=== PATIENT | female | born 1940 | race Caucasian/White ===

== ENCOUNTER 2017-04-22 17:48 | Observation (INO) ==
[2017-04-22] MEDS ORDERED: 0.9 % Sodium Chloride 1,000 ML IVC ONE (18:01)
--- NOTE | 2017-04-22 18:01 | Emergency Department Note ---
Disposition Clinical Impression: Hypertensive emergency, Migraine, Neurological symptoms Disposition: Admitted As Inpatient Condition: Good General Adult HPI - General Chief complaint: ED Altered Mental Status Stated complaint: Headache, High BP, Confusion Time Seen by Provider: 04/22/17 17:52 Source: EMS Nursing Notes Reviewed: Yes Vital Signs Reviewed: Yes - History of Present Illness Pain Scale: 9 - Related Data Home Medications Medication Instructions Recorded Confirmed Atorvastatin Calcium [Lipitor] 20 mg PO HS 01/23/16 04/22/17 Cholecalciferol (D-3) [Vitamin D] 1,000 unit PO DAILY 01/23/16 04/22/17 Multivitamin [Multivitamins] 1 tab PO DAILY 01/23/16 04/22/17 Omeprazole [PriLOSEC] 20 mg PO DAILY 01/23/16 04/22/17 clonazePAM [Klonopin] 1 mg PO BID PRN 01/23/16 04/22/17 hydroCHLOROthiazide 25 mg PO DAILY 01/23/16 04/22/17 [Hydrochlorothiazide] metFORMIN [Glucophage] 500 mg PO BIDWM 01/23/16 04/22/17 Aspirin Enteric Coated [Aspirin EC] 81 mg PO DAILY 11/21/16 04/22/17 Cyanocobalamin (Vitamin B-12) 100 mcg PO DAILY 04/22/17 04/22/17 [Vitamin B-12] Erythromycin OPTH Oint 1 appl BOTH EYES HS 04/22/17 04/22/17 Levothyroxine [Synthroid] 100 mcg PO 0630 04/22/17 04/22/17 Allergies Allergy/AdvReac Type Severity Reaction Status Date / Time Iodinated Contrast- Oral and Allergy See Verified 11/21/16 10:27 IV Dye Comments ampicillin AdvReac Itching Verified 01/30/16 12:37 Cephalosporins AdvReac Rash Verified 01/30/16 12:37 metronidazole [From Flagyl] AdvReac Itching Verified 01/30/16 12:37 naproxen AdvReac Itching Verified 01/30/16 12:37 nitrofurantoin AdvReac "serum Verified 01/30/16 12:37 [From Macrodantin] sickness" penicillin V AdvReac Itching Verified 01/30/16 12:37 Past Medical History - Past Medical History Medical history: Reports: arthritis, diabetes, GERD, hypertension, migraine, thyroid disease Surgical history: Reports: hysterectomy, other Psychiatric history: Reports: no psych history 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 - Social History Smoking Status: Former smoker Smokeless Tobacco Status: No Alcohol use: Reports: none Drug use: Reports: none Physical Exam - General General appearance: alert, in no apparent distress Course Vital Signs Temperature 97.5 F L 04/22/17 17:50 Pulse Rate 70 04/22/17 17:50 Respiratory Rate 20 04/22/17 17:50 Blood Pressure 205/106 04/22/17 17:50 O2 Sat by Pulse Oximetry 96 04/22/17 17:50 Temperature 98.2 F 04/22/17 21:48 Pulse Rate 69 04/22/17 21:48 Respiratory Rate 16 04/22/17 21:48 Blood Pressure 196/93 04/22/17 21:48 O2 Sat by Pulse Oximetry 97 04/22/17 21:48 Oxygen Delivery Oxygen Delivery Room Air Medical Decision Making - MDM Narrative Medical decision making narrative: This documentation is done with the assistance of Dragon dictation. Despite efforts made to ensure accuracy, there may be inaccuracies in teleservices representative or spelling and typographical errors. I examined this patient and my medical decision-making was reviewed with the Resident Physician. I agree with the documented findings, disposition and treatment plan as described except to the extent set forth below. Patient was seen on arrival with EMS and Dr. Kolb, I agree with his evaluation and treatment plan, I supervised the care of the patient's stay, patient presents today with headache and hypertension. She has had a history of this in the past and was just seen in the emergency department. Had high blood pressures with the greater than 200 systolic when she was seen before CT of her head was negative. She says she is taking her blood pressure medicine but still appears high. She states that she said migraine headaches since she was a child and this is gotten worse. Medics state gave her a "nerve pill before she came in that made her little bit sleepy but still is high blood pressure and also hypertension and headache. When I review her last chart. We will try to make her more comfortable than determine if we need to do other studies on her. She is in agreement with this plan. Head CT 04/22/17 18:08 IMPRESSION: No acute intracranial abnormality. D/ / Roberth Echols MD / Roberth Echols MD Interpreting Provider: Roberth Echols MD 1940 hrs.: CTs back labs are back no big changes on labs. We will bring her into the hospital. For evaluation of this hypertensive with possible hypertensive emergency and TIA. They are in agreement with plan per - Lab Data Result diagrams: 04/22/17 18:17 04/22/17 18:17 Lab Results 04/22/17 04/22/17 04/22/17 Range/Units 18:17 18:17 18:17 WBC 7.8 (4.3-11.1) K/mcL RBC 4.64 (3.82-4.97) M/mcL Hgb 12.7 (11.5-15.4) g/dL Hct 37.6 (35.3-44.9) % MCV 81.0 L (83.0-100.0) fL MCH 27.4 L (28.0-33.3) pg MCHC 33.8 (31.6-35.5) g/dL RDW 14.3 (11.5-14.5) % Plt Count 240 (140-400) K/mcL MPV 9.8 (9.4-12.4) fL Immature Gran % 0.3 (0-4) % Seg Neutrophils % 53.1 % Lymphocytes % 31.6 % Monocytes % 12.0 % Eosinophils % 2.4 % Basophils % 0.6 % Neutrophils # 4.2 (1.6-8.9) K/mcL Lymphocytes # 2.5 (0.6-4.6) K/mcL Monocytes # 0.9 (0.0-1.3) K/mcL Eosinophils # 0.2 (0.0-0.6) K/mcL Basophils # 0.1 (0.0-0.2) K/mcL Sodium 135 L (136-145) mEq/L Potassium 3.6 (3.5-5.1) mEq/L Chloride 101 (98-107) mEq/L Carbon Dioxide 24 (23-29) mEq/L BUN 16 (8-23) mg/dL Creatinine 1.06 (0.60-1.20) mg/dL Est GFR ( Amer) > 60 (> 60) Est GFR (Non-Af Amer) 51 L (> 60) BUN/Creatinine Ratio 15 (6-26) Glucose 99 (70-105) mg/dL Calculated Osmolality 281 (280-300) Calcium 9.1 (8.6-10.3) mg/dL Troponin I < 0.03 (< 0.04) ng/mL TSH 0.784 (0.340-5.600) mcIU/mL Specimen Rejected 04/22/17 Range/Units 18:17 WBC (4.3-11.1) K/mcL RBC (3.82-4.97) M/mcL Hgb (11.5-15.4) g/dL Hct (35.3-44.9) % MCV (83.0-100.0) fL MCH (28.0-33.3) pg MCHC (31.6-35.5) g/dL RDW (11.5-14.5) % Plt Count (140-400) K/mcL MPV (9.4-12.4) fL Immature Gran % (0-4) % Seg Neutrophils % % Lymphocytes % % Monocytes % % Eosinophils % % Basophils % % Neutrophils # (1.6-8.9) K/mcL Lymphocytes # (0.6-4.6) K/mcL Monocytes # (0.0-1.3) K/mcL Eosinophils # (0.0-0.6) K/mcL Basophils # (0.0-0.2) K/mcL Sodium (136-145) mEq/L Potassium (3.5-5.1) mEq/L Chloride (98-107) mEq/L Carbon Dioxide (23-29) mEq/L BUN (8-23) mg/dL Creatinine (0.60-1.20) mg/dL Est GFR ( Amer) (> 60) Est GFR (Non-Af Amer) (> 60) BUN/Creatinine Ratio (6-26) Glucose (70-105) mg/dL Calculated Osmolality (280-300) Calcium (8.6-10.3) mg/dL Troponin I (< 0.04) ng/mL TSH (0.340-5.600) mcIU/mL Specimen Rejected TNP
[2017-04-22] MEDS ORDERED: *HR* Labetalol 100 MG/20 ML MDV IVP ONE (18:02)
[2017-04-22] MEDS ORDERED: Metoclopramide 10 MG/2 ML VIAL IVP ONE (18:09)
--- NOTE | 2017-04-22 18:15 | Emergency Department Note ---
Disposition Clinical Impression: Hypertensive emergency, Migraine, Neurological symptoms Disposition: Admitted As Inpatient Condition: Good Referrals: Johnathon Rosales Jr, MD [Primary Care Provider] - Forms: ED Satisfaction Letter General Adult HPI - General Chief complaint: ED Altered Mental Status Stated complaint: Headache, High BP, Confusion Time Seen by Provider: 04/22/17 17:52 Source: patient, EMS Mode of arrival: EMS Limitations: no limitations Nursing Notes Reviewed: Yes Vital Signs Reviewed: Yes - History of Present Illness HPI Narrative: 76 y/o female female w/ a PMH of HTN, DM, hypothyroidism. She presents with chief complaints of headache and HTN. She reports migraines since she was 7 years old. She does not take any migraine medications. Denies seeing a neurologist. Reports switching to a different BP medication a few weeks ago and since then has had worsening headaches. She has been getting headaches every few days. She has been seen in the ED and urgent care for HTN and migraines recently. She reports today at about noon she developed another headache and elevated BP. Her reported left sided facial droop, and stumbling down the fontaine, and some confusion. This has all resolved aside from the headache and HTN. She has some nausea but not vomiting. Radiation: non-radiation Pain Severity: severe Pain Scale: 9 Improves with: nothing Worsens with: nothing Associated symptoms: Reports: denies other symptoms Treatments Prior to Arrival: none - Related Data Home Medications Medication Instructions Recorded Confirmed Atorvastatin Calcium [Lipitor] 20 mg PO HS 01/23/16 01/30/16 Cholecalciferol (D-3) [Vitamin D] 1,000 unit PO DAILY 01/23/16 01/30/16 Levothyroxine [Synthroid] 50 mcg PO 0630 01/23/16 01/30/16 Losartan Potassium [Cozaar] 50 mg PO HS 01/23/16 01/30/16 Multivitamin [Multivitamins] 1 tab PO DAILY 01/23/16 01/30/16 Omeprazole [PriLOSEC] 20 mg PO DAILY 01/23/16 01/30/16 clonazePAM [Klonopin] 1 mg PO BID PRN 01/23/16 01/30/16 hydroCHLOROthiazide 25 mg PO DAILY 01/23/16 01/30/16 [Hydrochlorothiazide] metFORMIN [Glucophage] 500 mg PO BIDWM 01/23/16 01/30/16 Aspirin 09/17/17 Benadryl 11/21/16 11/21/16 Previous Rx's Medication Instructions Recorded Acetaminophen [Tylenol] 1,000 mg PO Q6HR PRN #0 tablet 01/26/16 Chava/Poly/HC *EAR* SUSP 4 drop RIGHT EAR QID 7 Days 11/21/16 [Cortisporin *EAR* SUSP] drops.susp Sulfamethoxazole/Trimeth DS 1 each PO BID #14 tablet 11/21/16 [Bactrim DS] Allergies Allergy/AdvReac Type Severity Reaction Status Date / Time Iodinated Contrast- Oral and Allergy See Verified 11/21/16 10:27 IV Dye Comments ampicillin AdvReac Itching Verified 01/30/16 12:37 Cephalosporins AdvReac Rash Verified 01/30/16 12:37 metronidazole [From Flagyl] AdvReac Itching Verified 01/30/16 12:37 naproxen AdvReac Itching Verified 01/30/16 12:37 nitrofurantoin AdvReac "serum Verified 01/30/16 12:37 [From Macrodantin] sickness" penicillin V AdvReac Itching Verified 01/30/16 12:37 All systems ED: reviewed and negative except as stated. 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 Absent: respiratory distress - Cardiovascular Cardiovascular exam: Present: regular rate, normal rhythm - Abdominal Exam Abdominal exam: Present: soft, Non-Tender - Extremities Exam Extremities exam: Present: normal inspection - Neurological Exam Neurological exam: Present: alert, oriented X3, CN II-XII intact, normal gait, reflexes normal. Absent: motor sensory deficit - Psychiatric Psychiatric exam: Present: normal affect, normal mood - Skin Skin exam: Present: warm, dry Course Course Narrative: BP reduced to 170 systolic after labetalol. HEadache improved after reglan. She is ambulatory in the ED. Will admit for HTN emergency (confusion according to the ). Accepted by hospitalist for admission due to concern for TIA symptoms. All neurologic symptoms are currently resolved. Vital Signs Temperature 97.5 F L 04/22/17 17:50 Pulse Rate 70 04/22/17 17:50 Respiratory Rate 20 04/22/17 17:50 Blood Pressure 205/106 04/22/17 17:50 O2 Sat by Pulse Oximetry 96 04/22/17 17:50 Temperature 97.5 F L 04/22/17 17:50 Pulse Rate 65 04/22/17 19:17 Respiratory Rate 16 04/22/17 19:17 Blood Pressure 203/91 04/22/17 19:17 O2 Sat by Pulse Oximetry 97 04/22/17 19:17 Oxygen Delivery Oxygen Delivery Room Air Medical Decision Making - Medical Records Medical records reviewed: Yes I reviewed the patient's medical records. - Lab Data Lab results reviewed: Yes I reviewed the patient's lab results. Result diagrams: 04/22/17 18:17 04/22/17 18:17 Lab Results 04/22/17 04/22/17 04/22/17 Range/Units 18:17 18:17 18:17 WBC 7.8 (4.3-11.1) K/mcL RBC 4.64 (3.82-4.97) M/mcL Hgb 12.7 (11.5-15.4) g/dL Hct 37.6 (35.3-44.9) % MCV 81.0 L (83.0-100.0) fL MCH 27.4 L (28.0-33.3) pg MCHC 33.8 (31.6-35.5) g/dL RDW 14.3 (11.5-14.5) % Plt Count 240 (140-400) K/mcL MPV 9.8 (9.4-12.4) fL Immature Gran % 0.3 (0-4) % Seg Neutrophils % 53.1 % Lymphocytes % 31.6 % Monocytes % 12.0 % Eosinophils % 2.4 % Basophils % 0.6 % Neutrophils # 4.2 (1.6-8.9) K/mcL Lymphocytes # 2.5 (0.6-4.6) K/mcL Monocytes # 0.9 (0.0-1.3) K/mcL Eosinophils # 0.2 (0.0-0.6) K/mcL Basophils # 0.1 (0.0-0.2) K/mcL Sodium 135 L (136-145) mEq/L Potassium 3.6 (3.5-5.1) mEq/L Chloride 101 (98-107) mEq/L Carbon Dioxide 24 (23-29) mEq/L BUN 16 (8-23) mg/dL Creatinine 1.06 (0.60-1.20) mg/dL Est GFR ( Amer) > 60 (> 60) Est GFR (Non-Af Amer) 51 L (> 60) BUN/Creatinine Ratio 15 (6-26) Glucose 99 (70-105) mg/dL Calculated Osmolality 281 (280-300) Calcium 9.1 (8.6-10.3) mg/dL Troponin I < 0.03 (< 0.04) ng/mL TSH 0.784 (0.340-5.600) mcIU/mL Specimen Rejected 04/22/17 Range/Units 18:17 WBC (4.3-11.1) K/mcL RBC (3.82-4.97) M/mcL Hgb (11.5-15.4) g/dL Hct (35.3-44.9) % MCV (83.0-100.0) fL MCH (28.0-33.3) pg MCHC (31.6-35.5) g/dL RDW (11.5-14.5) % Plt Count (140-400) K/mcL MPV (9.4-12.4) fL Immature Gran % (0-4) % Seg Neutrophils % % Lymphocytes % % Monocytes % % Eosinophils % % Basophils % % Neutrophils # (1.6-8.9) K/mcL Lymphocytes # (0.6-4.6) K/mcL Monocytes # (0.0-1.3) K/mcL Eosinophils # (0.0-0.6) K/mcL Basophils # (0.0-0.2) K/mcL Sodium (136-145) mEq/L Potassium (3.5-5.1) mEq/L Chloride (98-107) mEq/L Carbon Dioxide (23-29) mEq/L BUN (8-23) mg/dL Creatinine (0.60-1.20) mg/dL Est GFR ( Amer) (> 60) Est GFR (Non-Af Amer) (> 60) BUN/Creatinine Ratio (6-26) Glucose (70-105) mg/dL Calculated Osmolality (280-300) Calcium (8.6-10.3) mg/dL Troponin I (< 0.04) ng/mL TSH (0.340-5.600) mcIU/mL Specimen Rejected TNP - Radiology Data Radiology results reviewed: Yes I reviewed the patient's radiology results. - EKG Data EKG #1 EKG attestation: Yes I reviewed and interpreted this EKG. EKG shows normal: sinus rhythm Rate: normal Rhythm: NSR Interpretation: no acute changes
[2017-04-22 18:29] LABS: Basophils # 0.1 K/mcL (0.0-0.2); Basophils % 0.6 %; Eosinophils # 0.2 K/mcL (0.0-0.6); Eosinophils % 2.4 %; Hematocrit 37.6 % (35.3-44.9); Hemoglobin 12.7 g/dL (11.5-15.4); Immature Granulocytes % 0.3 % (0-4); Lymphocytes # 2.5 K/mcL (0.6-4.6); Lymphocytes % 31.6 %; Mean Corpuscular HGB Conc 33.8 g/dL (31.6-35.5); Mean Corpuscular Hemoglobin 27.4 pg (28.0-33.3); Mean Platelet Volume 9.8 fL (9.4-12.4); Monocytes # 0.9 K/mcL (0.0-1.3); Neutrophils # 4.2 K/mcL (1.6-8.9); Platelet Count 240 K/mcL (140-400); Red Blood Count 4.64 M/mcL (3.82-4.97); Red Cell Distribution Width 14.3 % (11.5-14.5); Segmented Neutrophils % 53.1 %
[2017-04-22 19:08] LABS: Thyroid Stimulating Hormone 0.784 mcIU/mL (0.340-5.600)
[2017-04-22 19:09] LABS: BUN/Creatinine Ratio 15 (6-26); Blood Urea Nitrogen 16 mg/dL (8-23); Calcium 9.1 mg/dL (8.6-10.3); Carbon Dioxide 24 mEq/L (23-29); Chloride 101 mEq/L (98-107); Glucose 99 mg/dL (70-105); Osmolality,Calculated 281 (280-300); Potassium 3.6 mEq/L (3.5-5.1); Sodium 135 mEq/L (136-145); eGFR For African Americans > 60 (> 60); eGFR For Non-African Americans 51 (> 60)
[2017-04-22] MEDS ORDERED: Naloxone 0.4 MG/ML INJ IVP PRN (22:02)
[2017-04-22] MEDS: *HR* HYDROcodone/Acet 5/325 mg TABLET PO PRN (23:00)
[2017-04-22] MEDS ORDERED: *HR* Dextrose 50 % in Water (Syg) 50 ML SYRINGE IVP PRN (23:26)
[2017-04-22] MEDS ORDERED: Dextrose Gel 15 GM/37.5 ML TUBE PO PRN ×2 (23:26)
[2017-04-22] MEDS ORDERED: D5% in Water 1,000 ML IVC PRN (23:26)
--- NOTE | 2017-04-22 23:32 | Internal Med History&Physical ---
Date of Encounter: 04/22/17 Time of Encounter: 21:00 Assessment and Plan (1) Hypertensive urgency Current visit: Yes Status: Acute Pt has poorly controlled HTN with BP over 200, no signs of significant end organ damage. Consider HTN urgency. - Closely monitor BP - Cont home med HCTZ - Add labetalol 200mg po BID - Hydralazine 10mg iv q6hr PRN for SBP > 180 - Avoid hypotension as pt has symptoms of TIA, keep relatively high BP ( permissive HTN) tonight. (2) TIA (transient ischemic attack) Current visit: Yes Status: Acute Pt has transient slurred speech and numbness of left arm, resolved now, TIA vs complicated migraine. - Cont cardiac monitoring to r/o occult A Fib - Echo and duplex carotid - NIHSS q4h - Pt is on ASA and atorvastatin already. - MRI head in AM Qualifiers: Transient cerebral ischemia type: carotid artery syndrome (hemispheric) Qualified Code(s): G45.1 - Carotid artery syndrome (hemispheric) (3) Diabetes mellitus Current visit: Yes Status: Acute Pt takes metformin at home, will cover pt with SSI at hospital. Qualifiers: Diabetes mellitus type: type 2 Diabetes mellitus complication status: without complication Diabetes mellitus [facility] insulin use: without [facility] use Qualified Code(s): E11.9 - Type 2 diabetes mellitus without complications (4) Hypothyroidism Current visit: Yes Status: Acute Cont home meds Qualifiers: Hypothyroidism type: acquired Qualified Code(s): E03.9 - Hypothyroidism, unspecified (5) DVT prophylaxis Current visit: Yes Status: Acute Heparin SC (6) Migraine Current visit: Yes Status: Acute Place pt on tylenol and norco as needed. Qualifiers: Migraine type: without aura Status migrainosus presence: without status migrainosus Intractability: not intractable Qualified Code(s): G43.009 - Migraine without aura, not intractable, without status migrainosus Internal Medicine - H&P: HPI Chief complaint: Headache Admitted From: Home Plans for Post Hospital Care: Home History of present illness: Ms. Sanchez is a 76 year old female with Hx of migraine, HTN, DM, hypothyroidism, present to ER for headache and high BP. Pt's BP is poorly controlled and reach 200s. Pt has on and off headache. Today she also c/o facial numbness, left arm numbness, and slurred speech, which lasted about 1 and half hours and resolved by itself. In ER, her BP shows 205/106. CT head negative. Pt was given labetalol 5mg iv once and BP get down to 170s. She was consider TIA and was admitted for further management. Past Med Surg Social Fam HX - Past Medical History Medical history: arthritis, diabetes, GERD, hypertension, migraine, thyroid disease Psychiatric history: no psych history - Past Surgical History Surgical History: hysterectomy, other - Social History Smoking Status: Former smoker Smokeless Tobacco Status: No Alcohol use: none Drug use: none - Family History Mother History Unknown: Yes Internal Medicine - H&P: Meds Atorvastatin Calcium [Lipitor] 20 mg PO HS 01/23/16 [History] Cholecalciferol (D-3) [Vitamin D] 1,000 unit PO DAILY 01/23/16 [History] Multivitamin [Multivitamins] 1 tab PO DAILY 01/23/16 [History] Omeprazole [PriLOSEC] 20 mg PO DAILY 01/23/16 [History] clonazePAM [Klonopin] 1 mg PO BID PRN 01/23/16 [History] hydroCHLOROthiazide [Hydrochlorothiazide] 25 mg PO DAILY 01/23/16 [History] metFORMIN [Glucophage] 500 mg PO BIDWM 01/23/16 [History] Aspirin Enteric Coated [Aspirin EC] 81 mg PO DAILY 11/21/16 [History] Cyanocobalamin (Vitamin B-12) [Vitamin B-12] 100 mcg PO DAILY 04/22/17 [History] Erythromycin OPTH Oint 1 appl BOTH EYES HS 04/22/17 [History] Levothyroxine [Synthroid] 100 mcg PO 0630 04/22/17 [History] 3 Allergy/AdvReac Type Severity Reaction Status Date / Time Iodinated Contrast- Oral and Allergy See Verified 11/21/16 10:27 IV Dye Comments ampicillin AdvReac Itching Verified 01/30/16 12:37 Cephalosporins AdvReac Rash Verified 01/30/16 12:37 metronidazole [From Flagyl] AdvReac Itching Verified 01/30/16 12:37 naproxen AdvReac Itching Verified 01/30/16 12:37 nitrofurantoin AdvReac "serum Verified 01/30/16 12:37 [From Macrodantin] sickness" penicillin V AdvReac Itching Verified 01/30/16 12:37 All Systems PM: A 10-system review of systems was performed and is negative for pertinent findings except as documented above in the HPI. - Constitutional Vitals: Temp Pulse Resp BP Pulse Ox 97.6 F 64 16 197/80 95 04/22/17 23:11 04/22/17 23:11 04/22/17 23:11 04/22/17 23:11 04/22/17 23:11 General appearance: Present: mild distress, A&O X 3, answers questions appropriately - Head Head exam: Present: atraumatic, normocephalic - Eye Eye exam: Present: PERRL, conjuntiva pink, sclera anicteric Pupils: Present: PERRL - Neck Neck exam general surgery: Present: supple, trachea midline. Absent: lymphadenopathy - Respiratory Respiratory exam: Present: CTAB. Absent: accessory muscle use, rales, rhonchi, wheezes - Cardiovascular Cardiovascular exam: Present: RRR, +S1, +S2. Absent: diastolic murmur, gallop, rubs, systolic murmur - GI/Abdominal GI/Abdominal exam: Present: normal bowel sounds, soft, no peritoneal signs. Absent: distended, tenderness - Extremities Exam Extremities exam: Present: warm, radial pulses palpable and symmetrical. Absent : calf tenderness, cyanotic, pedal edema - Neurological Exam Neurological exam: Present: CN II-XII intact, oriented X3, no focal deficits. Absent: pronater drift, facial droop, speech deficit - Skin Skin exam: Present: dry, intact Internal Med - H&P Results - Labs CBC & Chem 7: 04/22/17 18:17 04/22/17 18:17 - EKG Data -: EKG Interpreted by Myself EKG shows normal: sinus rhythm Rate: normal
[2017-04-23 03:56] LABS: Basophils # 0.1 K/mcL (0.0-0.2); Basophils % 0.7 %; Eosinophils # 0.2 K/mcL (0.0-0.6); Eosinophils % 2.7 %; Hematocrit 35.2 % (35.3-44.9); Hemoglobin 11.7 g/dL (11.5-15.4); Immature Granulocytes % 0.3 % (0-4); Lymphocytes # 2.6 K/mcL (0.6-4.6); Lymphocytes % 34.7 %; Mean Corpuscular HGB Conc 33.2 g/dL (31.6-35.5); Mean Corpuscular Hemoglobin 27.2 pg (28.0-33.3); Mean Corpuscular Volume 81.9 fL (83.0-100.0); Monocytes # 0.8 K/mcL (0.0-1.3); Monocytes % 11.4 %; Neutrophils # 3.7 K/mcL (1.6-8.9); Nucleated Red Blood Cells 0.4 /100 WBC (0); Platelet Count 202 K/mcL (140-400); Red Cell Distribution Width 14.2 % (11.5-14.5); Segmented Neutrophils % 50.2 %
[2017-04-23 04:39] LABS: BUN/Creatinine Ratio 16 (6-26); Blood Urea Nitrogen 15 mg/dL (8-23); Carbon Dioxide 23 mEq/L (23-29); Chloride 106 mEq/L (98-107); Glucose 116 mg/dL (70-105); Magnesium 1.7 mg/dL (1.6-2.6); Osmolality,Calculated 292 (280-300); Potassium 3.5 mEq/L (3.5-5.1); Sodium 140 mEq/L (136-145); eGFR For African Americans > 60 (> 60); eGFR For Non-African Americans 57 (> 60)
[2017-04-23] MEDS: *HR* Heparin 5,000 UNIT/ML VIAL SQ SCH ×2 (05:16→17:50)
--- NOTE | 2017-04-23 12:19 | Internal Med Progress Note ---
<Chema Bird - Last Filed: 04/23/17 12:09> Date of Encounter: 04/23/17 Time of Encounter: 12:09 - Assessment and plan (1) TIA (transient ischemic attack) Current Visit: Yes Status: Acute Assessment and plan: The patient has transient slurred speech and numbness of left arm and lower face on admission. It is resolved now. CT show no acute intracranial abnormality. Per documentation, the brain MRI report reads there are findings raising the question of a small curvilinear focus of recent ischemic change in the right posterior frontal cortex. Mild multifocal small-vessel ischemic changes and old right cerebellar infarct with a small amount of surrounding gliosis. 1. Avoid hypotension in the patient. 2. Echocardiogram and duplex of the carotid are pending 3. NIHSS q4h 4. Continue cardiac monitoring. 5. Continue on aspirin and atorvastatin. Qualifiers: Transient cerebral ischemia type: carotid artery syndrome (hemispheric) Qualified Code(s): G45.1 - Carotid artery syndrome (hemispheric) (2) Hypertensive emergency Current Visit: Yes Status: Acute Assessment and plan: The patient has poorly controlled hypertension with blood pressure over 200 systolic on admission. Brain MRI revealed recent ischemic changes in the right posterior frontal cortex. 1. Continue to monitor the patient's blood pressure. 2. Continual home medication of hydrochlorothiazide. 3. Continued the 200 mg labetalol PO BID. 4. IV hydralazine 10 mg Q6 hours PRN for systolic blood pressure greater than 180 5. Avoid hypotension as patient had symptoms of TIA. (3) Migraine Current Visit: Yes Status: Acute Assessment and plan: Continue Tylenol and [place] as needed Qualifiers: Migraine type: without aura Status migrainosus presence: without status migrainosus Intractability: not intractable Qualified Code(s): G43.009 - Migraine without aura, not intractable, without status migrainosus (4) Diabetes mellitus Current Visit: Yes Status: Acute Assessment and plan: Patient has diabetes mellitus type 2 [id number]. Continue patient on sliding scale. Qualifiers: Diabetes mellitus type: type 2 Diabetes mellitus complication status: without complication Diabetes mellitus cop breaker insulin use: without long-term use Qualified Code(s): E11.9 - Type 2 diabetes mellitus without complications (5) Hypothyroidism Current Visit: Yes Status: Acute Assessment and plan: Continue home medications. Qualifiers: Hypothyroidism type: acquired Qualified Code(s): E03.9 - Hypothyroidism, unspecified - Time Spent With Patient Greater than 35 minutes - Subjective Interval history: The patient was seen and evaluate at bedside this morning. The patient is afebrile and appears in no acute distress. Today the patient admits she still has a mild headache but the headache has improved since admission. She describes the headache as a frontal and pulsating headache that feels like "someone smack me on the side of the head". Patient states that it does not feel like her previous migraines and is not as severe as the migraines. The patient initially complained of numbness across the face, tongue, and left arm on admission with slurred speech. Today the patient denies any numbness or tingling, weaknesses, and any difficulty speaking. The patient was able to ambulate from the bed to the chair without any difficulty. Her gait was stable. Patient denies any fever, vision changes, nausea and vomiting, chest pain, shortness of breath, difficulty breathing, abdominal pain, numbness and tingling, any weaknesses. The patient has no other concerns at this time. - Constitutional Vitals: Temp Pulse Resp BP Pulse Ox 97.9 F 67 16 180/76 98 04/23/17 07:29 04/23/17 07:29 04/23/17 07:29 04/23/17 07:29 04/23/17 07:29 General appearance: Present: cooperative, A&O X 3, pleasant, answers questions appropriately - Head Head exam: Present: atraumatic - Eye Eye exam: Present: EOMI, normal appearance, PERRL - ENT ENT exam: Present: mucous membranes moist - Neck Neck exam general surgery: Present: supple. Absent: lymphadenopathy, tenderness - Respiratory Respiratory exam: Present: CTAB. Absent: accessory muscle use, chest wall tenderness, decreased breath sounds, respiratory distress, rhonchi, stridor, wheezes - Cardiovascular Cardiovascular exam: Present: RRR, +S1, +S2. Absent: gallop, rubs, systolic murmur, tachycardia - GI/Abdominal GI/Abdominal exam: Present: soft. Absent: distended, guarding, rebound, tenderness - Extremities Exam Extremities exam: Present: warm, radial pulses palpable and symmetrical. Absent : calf tenderness, joint swelling, pedal edema, tenderness - Neurological Exam Neurological exam: Present: alert, CN II-XII intact, normal gait, oriented X3, no focal deficits, strengths equal and symetr throughout. Absent: abnormal gait , altered, motor sensory deficit, pronater drift, facial droop, speech deficit - Expanded Neurological Exam Neurological exam expanded: Present: protecting the airway. Absent: ataxia, expressive aphasia, inattentive, receptive aphasia Patient oriented to: Present: person Speech: Present: fluid speech. Absent: garbled, slurred, stutter Neuro motor strength exam: LUE: 5, RUE: 5, LLE: 5, RLE: 5 DTR: bicep (L): 2+, bicep (R): 2+, patellar (L): 2+, patellar (R): 2+ Coma Scale Eye Opening: Spontaneous Coma Scale Motor Response: Obeys Commands Coma Scale Verbal Response: Oriented Coma Scale Total: 15 - Skin Skin exam: Present: dry, intact, warm Internal Medicine: Result - Labs CBC & Chem 7: 04/23/17 03:15 04/23/17 03:15 Labs: Short CBC 04/23/17 Range/Units 03:15 WBC 7.4 (4.3-11.1) K/mcL Hgb 11.7 (11.5-15.4) g/dL Hct 35.2 L (35.3-44.9) % Plt Count 202 (140-400) K/mcL Neutrophils # 3.7 (1.6-8.9) K/mcL BMP 04/23/17 03:15 Sodium 140 Potassium 3.5 Chloride 106 Carbon Dioxide 23 BUN 15 Creatinine 0.96 Glucose 116 H Calcium 9.0 - Impressions Impressions Brain MRI 04/22/17 23:51 IMPRESSION: There are findings raising the question of a small curvilinear focus of recent ischemic change in the right posterior frontal cortex Mild multifocal small-vessel ischemic changes 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 D/ / Andrea Palacios / Andrea Palacios Interpreting Provider: Andrea Palacios Consult Discharge Plan - Plan Referrals: Johnathon Rosales Jr, MD [Primary Care Provider] - <Ildefonso sAif H - Last Filed: 04/23/17 15:54> Date of Encounter: 04/23/17 - Constitutional Vitals: Temp Pulse Resp BP Pulse Ox 97.7 F 81 16 185/88 95 04/23/17 15:03 04/23/17 15:03 04/23/17 15:03 04/23/17 15:03 04/23/17 15:03 Internal Medicine: Result - Labs CBC & Chem 7: 04/23/17 03:15 04/23/17 03:15 Labs: Short CBC 04/23/17 Range/Units 03:15 WBC 7.4 (4.3-11.1) K/mcL Hgb 11.7 (11.5-15.4) g/dL Hct 35.2 L (35.3-44.9) % Plt Count 202 (140-400) K/mcL Neutrophils # 3.7 (1.6-8.9) K/mcL BMP 04/23/17 03:15 Sodium 140 Potassium 3.5 Chloride 106 Carbon Dioxide 23 BUN 15 Creatinine 0.96 Glucose 116 H Calcium 9.0 - Impressions Impressions Brain MRI 04/22/17 23:51 IMPRESSION: There are findings raising the question of a small curvilinear focus of recent ischemic change in the right posterior frontal cortex Mild multifocal small-vessel ischemic changes 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 D/ / Andrea Palacios / Andrea Palacios Interpreting Provider: Andrea Palacios - Attending Attestation Possible CVA right frontal lobe and prior stroke on the right cerebellum The patient says that last week she had some dysarthria and also lost her balance Continue aspirin, Lipitor Echocardiogram and carotid ultrasound, neurology consult Severe migraine, currently taking [place] as needed Hypertensive emergency, continue labetalol, hydrochlorothiazide and hydralazine I examined this patient and my medical decision-making was reviewed with the Resident Physician. I agree with the documented findings, disposition and treatment plan as described except to the extent set forth below.
[2017-04-23] MEDS: Cyanocobalamin (B-12) 1,000 MCG TABLET PO SCH (12:28)
[2017-04-23] MEDS: Insulin LISPRO 300 UNITS/3 ML VIAL SQ SCH ×4 (12:29→20:27)
[2017-04-23] MEDS: *HR* HYDROcodone/Acet 5/325 mg TABLET PO PRN ×2 (12:29→20:44)
[2017-04-23] MEDS: Cholecalciferol (D-3) 1,000 UNIT TABLET PO SCH (12:29)
[2017-04-23] MEDS: hydroCHLOROthiazide 25 MG TABLET PO SCH (12:29)
[2017-04-23] MEDS: Multivit/Ca/Min/Fe/FA 1 TAB TABLET PO SCH (12:30)
[2017-04-23] MEDS: Aspirin Enteric Coated 81 MG Tablet PO SCH (12:30)
[2017-04-23] MEDS: Acetaminophen 325 MG TABLET PO PRN (15:05)
[2017-04-23] MEDS: Erythromycin OPTH Oint BOTH EYES SCH (22:30)
[2017-04-24] MEDS: *HR* Heparin 5,000 UNIT/ML VIAL SQ SCH ×2 (06:06→17:14)
[2017-04-24] MEDS: *HR* HYDROcodone/Acet 5/325 mg TABLET PO PRN ×2 (06:55→11:20)
[2017-04-24 07:52] LABS: Basophils # 0.1 K/mcL (0.0-0.2); Basophils % 0.7 %; Eosinophils # 0.2 K/mcL (0.0-0.6); Eosinophils % 2.2 %; Hemoglobin 12.7 g/dL (11.5-15.4); Immature Granulocytes % 0.1 % (0-4); Lymphocytes # 2.8 K/mcL (0.6-4.6); Lymphocytes % 35.1 %; Mean Corpuscular HGB Conc 33.4 g/dL (31.6-35.5); Mean Corpuscular Hemoglobin 27.3 pg (28.0-33.3); Mean Corpuscular Volume 81.5 fL (83.0-100.0); Mean Platelet Volume 10.6 fL (9.4-12.4); Monocytes # 0.9 K/mcL (0.0-1.3); Monocytes % 11.2 %; Neutrophils # 4.1 K/mcL (1.6-8.9); Platelet Count 264 K/mcL (140-400); Red Blood Count 4.66 M/mcL (3.82-4.97); Red Cell Distribution Width 14.5 % (11.5-14.5); Segmented Neutrophils % 50.7 %
[2017-04-24 08:00] LABS: Alanine Aminotransferase 21 Units/L (7-52); Albumin 4.3 g/dL (3.5-5.7); Albumin/Globulin Ratio 1.5 (1.1-2.2); Alkaline Phosphatase 64 Units/L (34-104); Aspartate Amino Transferase 20 Units/L (13-39); BUN/Creatinine Ratio 15 (6-26); Bilirubin,Total 0.6 mg/dL (0.3-1.0); Blood Urea Nitrogen 16 mg/dL (8-23); Calcium 9.7 mg/dL (8.6-10.3); Carbon Dioxide 23 mEq/L (23-29); Chloride 100 mEq/L (98-107); Globulin 2.9 g/dL (2.4-3.5); Glucose 147 mg/dL (70-105); Osmolality,Calculated 282 (280-300); Potassium 3.7 mEq/L (3.5-5.1); Sodium 134 mEq/L (136-145); Total Protein 7.2 g/dL (6.4-8.9); eGFR For African Americans > 60 (> 60); eGFR For Non-African Americans 51 (> 60)
--- NOTE | 2017-04-24 10:01 | Internal Med Progress Note ---
<Chema Bird - Last Filed: 04/24/17 09:56> Date of Encounter: 04/24/17 Time of Encounter: 09:30 - Assessment and plan (1) TIA (transient ischemic attack) Current Visit: Yes Status: Acute Assessment and plan: The patient has transient slurred speech and numbness of left arm and lower face on admission. It is resolved now. CT show no acute intracranial abnormality. Per documentation, the brain MRI report reads there are findings raising the question of a small curvilinear focus of recent ischemic change in the right posterior frontal cortex. Mild multifocal small-vessel ischemic changes and old right cerebellar infarct with a small amount of surrounding gliosis. Carotid duplex showed left proximal ICA stenosis 40-59%. 1. Avoid hypotension in the patient. 2. Echocardiogram is pending 3. NIHSS q4h 4. Continue cardiac monitoring. 5. Continue on aspirin and atorvastatin. 6. Neurology consulted. Qualifiers: Transient cerebral ischemia type: carotid artery syndrome (hemispheric) Qualified Code(s): G45.1 - Carotid artery syndrome (hemispheric) (2) Hypertensive emergency Current Visit: Yes Status: Acute Assessment and plan: The patient has poorly controlled hypertension with blood pressure over 200 systolic on admission. Brain MRI revealed recent ischemic changes in the right posterior frontal cortex. 1. Continue to monitor the patient's blood pressure. 2. Continual home medication of hydrochlorothiazide. 3. Continued the 200 mg labetalol PO BID. 4. IV hydralazine 10 mg Q6 hours PRN for systolic blood pressure greater than 180 5. Avoid hypotension as patient had symptoms of TIA. (3) Migraine Current Visit: Yes Status: Acute Assessment and plan: Continue Tylenol and [place] as needed. Qualifiers: Migraine type: without aura Status migrainosus presence: without status migrainosus Intractability: not intractable Qualified Code(s): G43.009 - Migraine without aura, not intractable, without status migrainosus (4) Diabetes mellitus Current Visit: Yes Status: Acute Assessment and plan: Patient has diabetes mellitus type 2 [id number]. Continue patient on sliding scale. Qualifiers: Diabetes mellitus type: type 2 Diabetes mellitus complication status: without complication Diabetes mellitus terminal operations manager insulin use: without prison use Qualified Code(s): E11.9 - Type 2 diabetes mellitus without complications (5) Hypothyroidism Current Visit: Yes Status: Acute Assessment and plan: Continue home medications. Qualifiers: Hypothyroidism type: acquired Qualified Code(s): E03.9 - Hypothyroidism, unspecified - Time Spent With Patient 25 - 35 minutes - Subjective Interval history: The patient was seen and evaluate at bedside this morning. The patient is afebrile and appears in no acute distress. Today the patient admits she still has a headache but it is not her usual migraine. She describes the headache as a frontal and pulsating headache. The patient initially complained of numbness across the face, tongue, and left arm on admission with slurred speech. Today the patient admits that she had the numbness and tingling in her face and difficulty speaking this morning when she woke up. She states that it lasted for few minutes but then improved. She denies any numbness or tingling, weaknesses, and any difficulty speaking at this time on my exam. The patient was able to ambulate without any difficulty on my exam. Her gait was stable. Patient denies any fever, vision changes, nausea and vomiting, chest pain, shortness of breath, difficulty breathing, abdominal pain, numbness and tingling , any weaknesses. The patient admits she is anxious and scared. She is waiting for the neurologist to come and see her. Patient has no other concerns at this time. - Constitutional Vitals: Temp Pulse Resp BP Pulse Ox 98.2 F 63 16 180/80 95 04/24/17 07:26 04/24/17 07:26 04/24/17 07:26 04/24/17 07:26 04/24/17 07:26 General appearance: Present: cooperative, A&O X 3, pleasant, answers questions appropriately Exam: The patient appears anxious. - Head Head exam: Present: atraumatic - Eye Eye exam: Present: EOMI, normal appearance, PERRL - ENT ENT exam: Present: mucous membranes moist - Neck Neck exam general surgery: Present: full ROM, supple. Absent: lymphadenopathy, tenderness - Respiratory Respiratory exam: Present: CTAB. Absent: accessory muscle use, chest wall tenderness, respiratory distress, rhonchi, wheezes - Cardiovascular Cardiovascular exam: Present: RRR, +S1, +S2. Absent: bradycardia, gallop, rubs , tachycardia - GI/Abdominal GI/Abdominal exam: Present: soft. Absent: distended, guarding, tenderness - Extremities Exam Extremities exam: Present: normal inspection, warm, radial pulses palpable and symmetrical. Absent: calf tenderness, pedal edema, tenderness - Neurological Exam Neurological exam: Present: alert, CN II-XII intact, oriented X3, no focal deficits, strengths equal and symetr throughout. Absent: abnormal gait, altered , motor sensory deficit, pronater drift, facial droop, speech deficit - Expanded Neurological Exam Neurological exam expanded: Present: protecting the airway. Absent: ataxia, expressive aphasia, receptive aphasia, tremor Patient oriented to: Present: person, place, time DTR: bicep (L): 2+, bicep (R): 2+, patellar (L): 2+, patellar (R): 2+ Coma Scale Eye Opening: Spontaneous Coma Scale Motor Response: Obeys Commands Coma Scale Verbal Response: Oriented Coma Scale Total: 15 - Skin Skin exam: Present: dry, intact, warm Internal Medicine: Result - Labs CBC & Chem 7: 04/24/17 06:49 04/24/17 06:49 Labs: Short CBC 04/24/17 Range/Units 06:49 WBC 8.0 (4.3-11.1) K/mcL Hgb 12.7 (11.5-15.4) g/dL Hct 38.0 (35.3-44.9) % Plt Count 264 (140-400) K/mcL Neutrophils # 4.1 (1.6-8.9) K/mcL BMP 04/24/17 06:49 Sodium 134 L Potassium 3.7 Chloride 100 Carbon Dioxide 23 BUN 16 Creatinine 1.05 Glucose 147 H Calcium 9.7 Liver Function 04/24/17 Range/Units 06:49 Total Bilirubin 0.6 (0.3-1.0) mg/dL AST 20 (13-39) Units/L ALT 21 (7-52) Units/L Alkaline Phosphatase 64 (34-104) Units/L Albumin 4.3 (3.5-5.7) g/dL Consult Discharge Plan - Plan Referrals: Johnathon Rosales Jr, MD [Primary Care Provider] - <Ildefonso Asif H - Last Filed: 04/24/17 14:06> Date of Encounter: 04/24/17 - Constitutional Vitals: Temp Pulse Resp BP Pulse Ox 97 F L 71 16 137/94 97 04/24/17 12:00 04/24/17 12:00 04/24/17 12:00 04/24/17 12:00 04/24/17 12:00 Internal Medicine: Result - Labs CBC & Chem 7: 04/24/17 06:49 04/24/17 06:49 Labs: Short CBC 04/24/17 Range/Units 06:49 WBC 8.0 (4.3-11.1) K/mcL Hgb 12.7 (11.5-15.4) g/dL Hct 38.0 (35.3-44.9) % Plt Count 264 (140-400) K/mcL Neutrophils # 4.1 (1.6-8.9) K/mcL BMP 04/24/17 06:49 Sodium 134 L Potassium 3.7 Chloride 100 Carbon Dioxide 23 BUN 16 Creatinine 1.05 Glucose 147 H Calcium 9.7 Liver Function 04/24/17 Range/Units 06:49 Total Bilirubin 0.6 (0.3-1.0) mg/dL AST 20 (13-39) Units/L ALT 21 (7-52) Units/L Alkaline Phosphatase 64 (34-104) Units/L Albumin 4.3 (3.5-5.7) g/dL - Attending Attestation Possible CVA right frontal lobe and prior stroke on the right cerebellum The patient says that last week she had some dysarthria and also lost her balance Continue aspirin, Lipitor Echocardiogram and carotid ultrasound, neurology consulted, recommended MRA of the head and neck, allergic to contrast Severe migraine, currently taking [place] as needed Hypertensive emergency, continue labetalol, hydrochlorothiazide and hydralazine I examined this patient and my medical decision-making was reviewed with the Resident Physician. I agree with the documented findings, disposition and treatment plan as described except to the extent set forth below.
[2017-04-24] MEDS: Insulin LISPRO 300 UNITS/3 ML VIAL SQ SCH ×4 (10:41→22:13)
[2017-04-24] MEDS: Aspirin Enteric Coated 81 MG Tablet PO SCH (10:45)
[2017-04-24] MEDS: Cholecalciferol (D-3) 1,000 UNIT TABLET PO SCH (10:45)
[2017-04-24] MEDS: Cyanocobalamin (B-12) 1,000 MCG TABLET PO SCH (10:45)
[2017-04-24] MEDS: hydroCHLOROthiazide 25 MG TABLET PO SCH (10:45)
[2017-04-24] MEDS: Multivit/Ca/Min/Fe/FA 1 TAB TABLET PO SCH (10:45)
[2017-04-24] MEDS ORDERED: Ketorolac 15 MG/ML VIAL IVP ONE (11:30)
[2017-04-24] MEDS ORDERED: Ondansetron 4 MG/2 ML VIAL IVP ONE (11:31)
--- NOTE | 2017-04-24 12:43 | Neurology - Consult Note ---
Date of Encounter: 04/24/17 Time of Encounter: 12:38 Assessment and Plan (1) Hypertensive emergency Current Visit: Yes Status: Acute It is my impression this patient's acute presentation is stemming from hypertensive urgency. Since the change in her blood pressure regimen she states that she has been having headaches more frequently. And upon presentation her blood pressure was 205/106. She does have a history of migraine headaches however believe that her migraines are currently being exacerbated by "control hypertension. I also feel that the small area of infarct right frontoparietal region is perhaps due to vasospasm associated with uncontrolled hypertension. However since the character of this headache is different from what she is used to I would like to obtain a CTA scan of the brain and of the neck. Echocardiogram is pending as well. Certainly aggressive management of her stroke risk factors is paramount. Statin, antihypertensive, and antiplatelet agents are the rule. She was given a one-time cocktail consisting of Benadryl, Toradol and Zofran. I might recommend adding a benzodiazepine at night to help her sleep. I believe that the migraine will decrease in intensity once she is able to get throughout was a sound sleep. Otherwise if the headache remains throughout the day and might consider giving Depacon 1000 mg IV over an hour. I will reevaluate her in the morning. History of Present Illness HPI: Ms. Sanchez is a 76 year old female seen for neurologic consultation secondary to severe headaches and paresthesias of the left face arm and leg. She states that she began having difficulty few weeks or so ago when her providers begin changing her medications. Was discovered that she was having difficulty tolerating the metformin resulting in kidney problems. Apparently her antihypertension regimen was altered as well. She has been having migraine headaches much more frequently since these changes were made. She reports having migraine headaches however going back to childhood. She has never been under the care of a specialist for her migraines. She generally takes over-the- counter remedies at home. Upon admission to [facility] her blood pressure was 205/106. She still has a very intense migraine headache even now. She was just given a migraine cocktail. She is lucid and able to give her own medical history. MRI scan of the brain was obtained and does reveal a small area in the right frontal parietal region that is consistent with a small acute infarct. There are also scattered deep white matter changes, and an old infarct in the right cerebellum. Carotid duplex Doppler study reveals 40-59% stenosis of the left internal carotid artery. She does have stroke risk factors which include diabetes mellitus, hypertension, hyperlipidemia. Echocardiogram is pending. Past Med Surg Social Fam HX - Past Medical History Medical history: arthritis, diabetes, GERD, hypertension, migraine, thyroid disease Psychiatric history: no psych history - Past Surgical History Surgical History: hysterectomy, other - Social History Smoking Status: Former smoker Smokeless Tobacco Status: No Alcohol use: none Drug use: none - Family History Mother History Unknown: Yes Medications and Allergies Atorvastatin Calcium [Lipitor] 20 mg PO HS 01/23/16 [History] Cholecalciferol (D-3) [Vitamin D] 1,000 unit PO DAILY 01/23/16 [History] Multivitamin [Multivitamins] 1 tab PO DAILY 01/23/16 [History] Omeprazole [PriLOSEC] 20 mg PO DAILY 01/23/16 [History] clonazePAM [Klonopin] 1 mg PO BID PRN 01/23/16 [History] hydroCHLOROthiazide [Hydrochlorothiazide] 25 mg PO DAILY 01/23/16 [History] metFORMIN [Glucophage] 500 mg PO BIDWM 01/23/16 [History] Aspirin Enteric Coated [Aspirin EC] 81 mg PO DAILY 11/21/16 [History] Cyanocobalamin (Vitamin B-12) [Vitamin B-12] 100 mcg PO DAILY 04/22/17 [History] Erythromycin OPTH Oint 1 appl BOTH EYES HS 04/22/17 [History] Levothyroxine [Synthroid] 100 mcg PO 0630 04/22/17 [History] 3 Allergy/AdvReac Type Severity Reaction Status Date / Time Iodinated Contrast- Oral and Allergy See Verified 11/21/16 10:27 IV Dye Comments ampicillin AdvReac Itching Verified 01/30/16 12:37 Cephalosporins AdvReac Rash Verified 01/30/16 12:37 metronidazole [From Flagyl] AdvReac Itching Verified 01/30/16 12:37 naproxen AdvReac Itching Verified 01/30/16 12:37 nitrofurantoin AdvReac "serum Verified 01/30/16 12:37 [From Macrodantin] sickness" penicillin V AdvReac Itching Verified 01/30/16 12:37 All Systems: A 10-system review of systems was performed and is negative for pertinent findings except as documented above in the HPI. Review of Systems: 10 point review of systems is consistent with a history of present illness and otherwise negative. Physical Examination - Vital Signs Vital Signs: Initial Vital Signs Temp Pulse Resp BP Pulse Ox 97.5 F L 70 20 205/106 96 04/22/17 17:50 04/22/17 17:50 04/22/17 17:50 04/22/17 17:50 04/22/17 17:50 - Neurologic Detailed motor examination: full strength in all major muscle groups Motor examination - right side: 5/5: deltoids, biceps, triceps, wrist flexion, wrist extension, flight instructor, hip flexors, tibialis Anterior, quadriceps, toe extension (EHL), plantarflexion Motor examination - left side: 5/5: deltoids, biceps, triceps, wrist flexion, wrist extension, hip flexors, flight instructor, quadriceps, tibialis Anterior, toe extension (EHL), plantarflexion Mental Status Examination: awake, alert, oriented to person, oriented to place, oriented to time, follows commands appropriately, answers questions appropriately, no agnosia, no aphasia, no aproxia Cranial nerve examination: PERRL, EOMI, visual capellan intact, corneal reflexes brisk symmetrically, sensory to face intact, mastication intact, no facial asymmetry is present, no dysarthria, hearing is intact symmetrically, soft palate elevates bilaterally upon phonation, gag reflex intact, flexes SCM and trapezius muscles symmetrically with full power, tongue protrudes midline, no atrophy or facial fasiculations present Cerebellar examination: no dysmetria, performs finger to nose and heel to garcia symmetrically without ataxia, no gait ataxia, no truncal ataxia, no difficulty with rapid alternating movements Results - Laboratory Findings CBC and BMP: 04/24/17 06:49 04/24/17 06:49 Abnormal lab findings: Abnormal lab results MCV 81.5 fL (83.0-100.0) L 04/24/17 06:49 MCH 27.3 pg (28.0-33.3) L 04/24/17 06:49 Nucleated RBCs/100 WBC 0.4 /100 WBC (0) H 04/23/17 03:15 Sodium 134 mEq/L (136-145) L 04/24/17 06:49 Est GFR (Non-Af Amer) 51 (> 60) L 04/24/17 06:49 Glucose 147 mg/dL (70-105) H 04/24/17 06:49 POC Glucose 140 (58-89) H 04/24/17 07:29 Consult Discharge Plan - Plan Referrals: Johnathon Rosales Jr, MD [Primary Care Provider] -
[2017-04-24] MEDS: clonazePAM 1 MG TABLET PO PRN (14:13)
[2017-04-24] MEDS: Erythromycin OPTH Oint BOTH EYES SCH (22:14)
[2017-04-25] MEDS: Acetaminophen 325 MG TABLET PO PRN (02:18)
[2017-04-25] MEDS: clonazePAM 1 MG TABLET PO PRN (02:28)
[2017-04-25] MEDS: *HR* Heparin 5,000 UNIT/ML VIAL SQ SCH (05:46)
--- NOTE | 2017-04-25 08:19 | Neurology Progress Note ---
Date of Encounter: 04/25/17 Time of Encounter: 08:17 Assessment and Plan (1) Hypertensive emergency Current Visit: Yes Status: Acute Patient is clinically improved this morning. She is sitting up at the bedside eating her breakfast in no acute distress. She denies headache at the time. Ultimately I believe that the headaches were driven by her hypertensive urgency. Systolic blood pressures this morning or in the 140s. MRA scan of the brain is pending to rule out aneurysm. Otherwise stroke protocol order should remain in operation. Aggressive management of her stroke risk factors is paramount. We will continue to follow. Subjective Interval history: Chart was reviewed, patient was seen and examined. She is presently sitting up at the bedside eating her breakfast. She is handling eating utensils without difficulty. She states that she has no headache today. She denies any new symptoms denies any visual changes numbness tingling or weakness. Echocardiogram revealed no evidence of a cardioembolic source. MRA scans of the brain and neck still Pending. Blood pressure readings are improving and trending downward. 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, hip flexors, tibialis Anterior, quadriceps, toe extension (EHL), plantarflexion Motor examination - left side: 5/5: deltoids, biceps, triceps, wrist flexion, wrist extension, hip flexors, teacher hearing impaired, quadriceps, tibialis Anterior, toe extension (EHL), plantarflexion Sensation intact: Present: intact Mental Status Examination: Present: awake, alert, oriented to person, oriented to place, oriented to time, follows commands appropriately, answers questions appropriately, no agnosia, no aphasia, no aproxia Cranial nerve examination: Present: PERRL, EOMI, visual capellan intact, corneal reflexes brisk symmetrically, sensory to face intact, mastication intact, no facial asymmetry is present, no dysarthria, hearing is intact symmetrically, soft palate elevates bilaterally upon phonation, gag reflex intact, flexes SCM and trapezius muscles symmetrically with full power, tongue protrudes midline, no atrophy or facial fasiculations present Cerebellar examination: Present: no dysmetria, performs finger to nose and heel to garcia symmetrically without ataxia, no gait ataxia, no truncal ataxia, no difficulty with rapid alternating movements Results - Laboratory Findings CBC and BMP: 04/24/17 06:49 04/24/17 06:49 Abnormal lab findings: Abnormal lab results MCV 81.5 fL (83.0-100.0) L 04/24/17 06:49 MCH 27.3 pg (28.0-33.3) L 04/24/17 06:49 Nucleated RBCs/100 WBC 0.4 /100 WBC (0) H 04/23/17 03:15 Sodium 134 mEq/L (136-145) L 04/24/17 06:49 Est GFR (Non-Af Amer) 51 (> 60) L 04/24/17 06:49 Glucose 147 mg/dL (70-105) H 04/24/17 06:49 POC Glucose 117 (58-89) H 04/25/17 06:57 Consult Discharge Plan - Plan Referrals: Johnathon Rosales Jr, MD [Primary Care Provider] -
[2017-04-25] MEDS: Insulin LISPRO 300 UNITS/3 ML VIAL SQ SCH ×2 (08:22→12:57)
[2017-04-25] MEDS: Multivit/Ca/Min/Fe/FA 1 TAB TABLET PO SCH (08:23)
[2017-04-25] MEDS: Cholecalciferol (D-3) 1,000 UNIT TABLET PO SCH (08:23)
[2017-04-25] MEDS: Cyanocobalamin (B-12) 1,000 MCG TABLET PO SCH (08:23)
[2017-04-25] MEDS: hydroCHLOROthiazide 25 MG TABLET PO SCH (08:23)
[2017-04-25] MEDS: Aspirin Enteric Coated 81 MG Tablet PO SCH (08:24)
--- NOTE | 2017-04-25 10:21 | Discharge Summary ---
<Ildefonso Asif H - Last Filed: 04/25/17 12:48> Date of Encounter: 04/25/17 - Discharge Medications Prescriptions: Atorvastatin Calcium [Lipitor] 20 mg PO HS #30 tablet HYDROcodone/Acet 5/325 mg [[place] 5-325 mg] 1 tab PO Q6H PRN 7 Days #28 tablet PRN Reason: Pain Labetalol [Trandate] 100 mg PO BID #60 tablet Lisinopril [Zestril] 10 mg PO DAILY #30 tablet Home Medications: Cholecalciferol (D-3) [Vitamin D] 1,000 unit PO DAILY 01/23/16 [History] Multivitamin [Multivitamins] 1 tab PO DAILY 01/23/16 [History] Omeprazole [PriLOSEC] 20 mg PO DAILY 01/23/16 [History] clonazePAM [Klonopin] 1 mg PO BID PRN 01/23/16 [History] hydroCHLOROthiazide [Hydrochlorothiazide] 25 mg PO DAILY 01/23/16 [History] metFORMIN [Glucophage] 500 mg PO BIDWM 01/23/16 [History] Aspirin Enteric Coated [Aspirin EC] 81 mg PO DAILY 11/21/16 [History] Cyanocobalamin (Vitamin B-12) [Vitamin B-12] 100 mcg PO DAILY 04/22/17 [History] Erythromycin OPTH Oint 1 appl BOTH EYES HS 04/22/17 [History] Levothyroxine [Synthroid] 100 mcg PO 0630 04/22/17 [History] Atorvastatin Calcium [Lipitor] 20 mg PO HS #30 tablet 04/25/17 [Rx] HYDROcodone/Acet 5/325 mg [[place] 5-325 mg] 1 tab PO Q6H PRN 7 Days #28 tablet [Rx] Labetalol [Trandate] 100 mg PO BID #60 tablet 04/25/17 [Rx] Lisinopril [Zestril] 10 mg PO DAILY #30 tablet 04/25/17 [Rx] Allergies/Adverse Reactions: 3 Allergy/AdvReac Type Severity Reaction Status Date / Time Iodinated Contrast- Oral and Allergy See Verified 11/21/16 10:27 IV Dye Comments ampicillin AdvReac Itching Verified 01/30/16 12:37 Cephalosporins AdvReac Rash Verified 01/30/16 12:37 metronidazole [From Flagyl] AdvReac Itching Verified 01/30/16 12:37 naproxen AdvReac Itching Verified 01/30/16 12:37 nitrofurantoin AdvReac "serum Verified 01/30/16 12:37 [From Macrodantin] sickness" penicillin V AdvReac Itching Verified 01/30/16 12:37 Procedures/tests Complete & Pending: Procedures Performed prior 72 hours Category Date Time Status MR angio head wo con [MR] Routine MRI 04/25/17 09:35 Draft MR angio neck wo/w con [MR] Routine MRI 04/25/17 09:35 Draft Date of admission: 04/23/17 15:56 Primary care physician: Johnathon Rosales Jr, MD Consults: 04/25/17 11:08 Consult to Therapy Aide [CONS] Routine Reason for SW Consult: Dishcarge Needs and want for new PCP - Patient Status Disposition: Home Health Service Condition: Good - Discharge Instructions Instructions: Labetalol (By mouth), Lisinopril (By mouth), Hydrocodone/ Acetaminophen (By mouth), Atorvastatin (By mouth), Hypothyroidism (DC), Diabetes Mellitus Type 2 in Adults (DC), Ischemic Stroke (DC), Ischemic Stroke ( GEN), Chronic Hypertension (DC), Transient Ischemic Attack, 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 Please follow-up with your primary care physician within one week. 2. Please follow-up with a neurologist within 2-3 weeks. 3. Please continue to take all your home medications as prescribed. 4. Please return to the hospital for worsening symptoms or any other concerns. Continue aspirin and Lipitor, continue hydrochlorothiazide, start labetalol 100 mg twice a day (hold if low heart rate less than 55 or low blood pressure), start lisinopril 10 mg daily Hospital course: Ms. Sanchez is a 76 year old female - Time Spent with Patient Total time spent providing and/or coordinating discharge services: Greater than 30 minutes (40 min) - Constitutional Vitals: Temp Pulse Resp BP Pulse Ox 97.8 F 61 15 128/46 95 04/25/17 11:23 04/25/17 11:23 04/25/17 11:23 04/25/17 11:23 04/25/17 11:23 - Attending Attestation CT scan of the head showed:prior stroke on the right cerebellum MRA of the head and neck were unremarkable tracing <Kari Bird-Susanne - Last Filed: 04/25/17 13:08> Date of Encounter: 04/25/17 Time of Encounter: 09:50 - Discharge Diagnosis (1) TIA (transient ischemic attack) Priority: Primary Status: Acute Comments: Neurology consulted. Patient denies any numbness or tingling, weakness, and any visual changes. The patient states that she is not having a headache today. Per documentation, echocardiogram revealed no evidence of a cardioembolic source. MRA scans of the brain and neck still pending to rule out aneurysm. Blood pressure readings are improving and trending downward. Per Neurologist, patient is clinically improving and if MRA is negative he feels comfortable with the patient being discharged and continuing her home medications. Patient will be discharged on 100mg labetalol BID (hold if low heart rate less than 55 or low blood pressure) and will have the patient start lisinopril 10 mg daily. Per note, PT/OT recommends 24 hr home health care. Qualifiers: Transient cerebral ischemia type: carotid artery syndrome (hemispheric) Qualified Code(s): G45.1 - Carotid artery syndrome (hemispheric) (2) Hypertensive emergency Priority: Primary Status: Acute (3) Migraine Priority: Secondary Status: Acute Qualifiers: Migraine type: without aura Status migrainosus presence: without status migrainosus Intractability: not intractable Qualified Code(s): G43.009 - Migraine without aura, not intractable, without status migrainosus (4) Diabetes mellitus Priority: Secondary Status: Acute Qualifiers: Diabetes mellitus type: type 2 Diabetes mellitus complication status: without complication Diabetes mellitus skilled nursing insulin use: without intermediate school teacher use Qualified Code(s): E11.9 - Type 2 diabetes mellitus without complications (5) Hypothyroidism Priority: Secondary Status: Acute Qualifiers: Hypothyroidism type: acquired Qualified Code(s): E03.9 - Hypothyroidism, unspecified Procedures/tests Complete & Pending: Procedures Performed prior 72 hours Category Date Time Status MR angio head wo con [MR] Routine MRI 04/25/17 09:35 Ordered MR angio neck wo/w con [MR] Routine MRI 04/25/17 09:35 Ordered Date of admission: 04/23/17 15:56 Primary care physician: Johnathon Rosales Jr, MD Discharging clinician: Chema Bird Anticipated date of discharge: 04/25/17 - Patient Status Functional capacity at discharge: uses cane/walker Overall status at discharge: patient is progressing back to baseline - Diet and Activity Activity: as per physical therapy, increase activity as tolerated Diet: advance to your usual diet Interval History: Patient was seen and evaluated at bedside this morning. Patient daughter is at bedside. Patient is alert, awake, interactive, afebrile, and appears in no acute distress. Patient states that she feels better today. She states that she woke up without any numbness and tingling of the face, any difficulty speaking, changes in her speech, and any headaches. Daughter states that the patient gait is still mildly unsteady. The patient states that she has been seen by a neurologist and feels more reassured today. Daughter at bedside states that she is a social service assistant. She requests that a social service assistant here at the hospital come see the patient to discuss primary care physicians options. Patient is about to be transported to received an MRA of her head and neck. Patient has no other concerns at this time. Hospital course: Ms. Sanchez is a 76 year old female was admitted on April 22 for hypertensive emergency and possible TIA. Patient has a past medical history of migraine, hypertension, diabetes, and hypothyroidism. The patient denies any history of stroke, TIAs, and acute MIs.The patient reported to the emergency department complaining of facial numbness, left arm numbness, slurred speech, headache, and elevated blood pressure. On admission, patient's systolic blood pressure is greater than 200s and diastolic greater than 100s. The patient states that her blood pressure readings at home usually runs in the 150 systolic and 70s for diastolic. During admission, patient blood pressure was closely monitored. Patient's home medication of hydrochlorothiazide was continued. Labetalol 200 mg po BID and hydralazine IV q6hr PRN were used to control her BP. Avoid hypotension in this patient due to symptoms of possible TIA. CT of the head showed no acute intracranial abnormalities. Prior documentation, MRI of the brain show small curvilinear focus of recent ischemic change in the right posterior frontal cortex. Mild multifocal small-vessel ischemic changes. 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 Duplex of both carotid revealed left proximal ICA has a moderate, 40-59% stenosis. Echocardiogram showed left ventricular ejection fraction of 60-65%. Neurologist recommended MRA of head and neck to rule out aneurysm due to her different headaches. Note that the patient is allergic to IV dye. Per Neurologist recommendation, if the MRA of head and neck are negative, patient can be discharged from a neurology standpoint. Patient is recommended to continue home medications. The patient is also recommended to follow-up with her primary care physician and a neurologist outpatient follow- up. She has no other concerns at this time. - Time Spent with Patient Total time spent providing and/or coordinating discharge services: Greater than 30 minutes - Constitutional Vitals: Temp Pulse Resp BP Pulse Ox 97.8 F 65 15 148/66 97 04/25/17 06:55 04/25/17 06:55 04/25/17 06:55 04/25/17 06:55 04/25/17 06:55 General appearance: Present: cooperative, A&O X 3, pleasant, answers questions appropriately - Head Head exam: Present: atraumatic, normocephalic - Eye Eye exam: Present: EOMI, normal appearance, PERRL, conjuntiva pink, sclera anicteric - ENT ENT exam: Present: mucous membranes moist - Neck Neck exam general surgery: Present: supple, trachea midline. Absent: lymphadenopathy, tenderness - Respiratory Respiratory exam: Present: CTAB. Absent: accessory muscle use, chest wall tenderness, rales, respiratory distress, rhonchi, wheezes - Cardiovascular Cardiovascular exam: Present: RRR, +S1, +S2. Absent: diastolic murmur, gallop, rubs, systolic murmur - GI/Abdominal GI/Abdominal exam: Present: soft, no peritoneal signs. Absent: distended, firm , guarding, tenderness - Extremities Exam Extremities exam: Present: warm, radial pulses palpable and symmetrical. Absent : calf tenderness, cyanotic, pedal edema - Neurological Exam Neurological exam: Present: abnormal gait (Gait is unsteady today. Patient ambulate with assistance. ), CN II-XII intact, oriented X3, no focal deficits, strengths equal and symetr throughout. Absent: pronater drift, facial droop, speech deficit - Expanded Neurological Exam Neurological exam expanded: Present: protecting the airway. Absent: ataxia, expressive aphasia, tremor Patient oriented to: Present: person, place, time Speech: Present: fluid speech. Absent: garbled, slurred, stutter Neuro motor strength exam: LUE: 5, RUE: 5, LLE: 5, RLE: 5 DTR: bicep (L): 2+, bicep (R): 2+, patellar (L): 2+, patellar (R): 2+ Coma Scale Eye Opening: Spontaneous Coma Scale Motor Response: Obeys Commands Coma Scale Verbal Response: Oriented Coma Scale Total: 15 - Skin Skin exam: Present: dry, intact, warm. Absent: pallor
--- NOTE | 2017-04-25 11:13 | Physician Discharge Referral ---
<Kari Bird-My - Last Filed: 04/25/17 13:03> Home Health/Hosp Referral Info Transfer to: Home Health Provider in Charge Post Discharge: PCP - Diagnosis (1) TIA (transient ischemic attack) Priority: Primary Status: Acute (2) Hypertensive emergency Priority: Primary Status: Acute (3) Migraine Priority: Secondary Status: Acute (4) Diabetes mellitus Priority: Secondary Status: Acute (5) Hypothyroidism Priority: Secondary Status: Acute - Respiratory Orders Smoking Cessation: Smoking cessation has been advised. For more information, call the [place] Tobacco Quit Line at 7-497-AGUK-NOW. - Diet/Nutrition Diet/Nutrition Orders: Regular - Activity Activity Orders: Up ad zahra (with assistance. Increase independence ambulation as tolerated.) - Services Needed Following services are medically necessary services: Nursing, Physical Therapy, Occupational Therapy - Transfer Medications Prescriptions: Atorvastatin Calcium [Lipitor] 20 mg PO HS #30 tablet HYDROcodone/Acet 5/325 mg [[place] 5-325 mg] 1 tab PO Q6H PRN 7 Days #28 tablet PRN Reason: Pain Labetalol [Trandate] 100 mg PO BID #60 tablet Lisinopril [Zestril] 10 mg PO DAILY #30 tablet Home Medications: Cholecalciferol (D-3) [Vitamin D] 1,000 unit PO DAILY 01/23/16 [History] Multivitamin [Multivitamins] 1 tab PO DAILY 01/23/16 [History] Omeprazole [PriLOSEC] 20 mg PO DAILY 01/23/16 [History] clonazePAM [Klonopin] 1 mg PO BID PRN 01/23/16 [History] hydroCHLOROthiazide [Hydrochlorothiazide] 25 mg PO DAILY 01/23/16 [History] metFORMIN [Glucophage] 500 mg PO BIDWM 01/23/16 [History] Aspirin Enteric Coated [Aspirin EC] 81 mg PO DAILY 11/21/16 [History] Cyanocobalamin (Vitamin B-12) [Vitamin B-12] 100 mcg PO DAILY 04/22/17 [History] Erythromycin OPTH Oint 1 appl BOTH EYES HS 04/22/17 [History] Levothyroxine [Synthroid] 100 mcg PO 0630 04/22/17 [History] Atorvastatin Calcium [Lipitor] 20 mg PO HS #30 tablet 04/25/17 [Rx] HYDROcodone/Acet 5/325 mg [[place] 5-325 mg] 1 tab PO Q6H PRN 7 Days #28 tablet [Rx] Labetalol [Trandate] 100 mg PO BID #60 tablet 04/25/17 [Rx] Lisinopril [Zestril] 10 mg PO DAILY #30 tablet 04/25/17 [Rx] Allergies/Adverse Reactions: 3 Allergy/AdvReac Type Severity Reaction Status Date / Time Iodinated Contrast- Oral and Allergy See Verified 11/21/16 10:27 IV Dye Comments ampicillin AdvReac Itching Verified 01/30/16 12:37 Cephalosporins AdvReac Rash Verified 01/30/16 12:37 metronidazole [From Flagyl] AdvReac Itching Verified 01/30/16 12:37 naproxen AdvReac Itching Verified 01/30/16 12:37 nitrofurantoin AdvReac "serum Verified 01/30/16 12:37 [From Macrodantin] sickness" penicillin V AdvReac Itching Verified 01/30/16 12:37 Certification: Further, I certify that my clinical findings support that this patient is homebound (i.e. absences from home require considerable and taxing effort and are for medical reasons or mandaen services or infrequently or short duration when for other reasons) because: Homebound Reason: Patient requires assistance of a person or device to safely leave home Attestation: My signature below is to certify that this patient is under my care and that I, or nurse practitioner, or a physician's corporate administrative assistant working with me, has a face-to -face encounter with this patient. <Ildefonso Asif - Last Filed: 04/25/17 13:14> - Respiratory Orders Smoking Cessation: Smoking cessation has been advised. For more information, call the [place] Tobacco Quit Line at 1-651-EKMN-NOW. Certification: Further, I certify that my clinical findings support that this patient is homebound (i.e. absences from home require considerable and taxing effort and are for medical reasons or mandaen services or infrequently or short duration when for other reasons) because: Attestation: My signature below is to certify that this patient is under my care and that I, or nurse practitioner, or a physician's corporate administrative assistant working with me, has a face-to -face encounter with this patient. Atorvastatin Calcium [Lipitor] 20 mg PO HS #30 tablet HYDROcodone/Acet 5/325 mg [[place] 5-325 mg] 1 tab PO Q6H PRN 7 Days #28 tablet PRN Reason: Pain Labetalol [Trandate] 100 mg PO BID #60 tablet Lisinopril [Zestril] 10 mg PO DAILY #30 tablet
[2017-04-25 11:24] VITALS: BP 128/46
[2017-04-25 14:08] LABS: Chol/HDL Ratio 2.9 (0-4.9); Cholesterol 165 mg/dL (< 200); HDL Cholesterol 57 mg/dL (40-59); LDL Cholesterol,Calculated 81 mg/dL (0-99); Triglycerides 137 mg/dL (< 150)
--- NOTE | 2017-04-25 14:55 | Event Note ---
Date of Encounter: 04/25/17 Time of Encounter: 14:54 Observation status recommended by Extended UR/ Alex Mora. Order changed
--- NOTE | 2017-04-27 02:09 | Electrocardiograph Report ---
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
== END 2017-04-25 14:40 | disposition home health service (06) ==
LOC: 2NENU 17:48 → EMEROO 17:48 → 2NENU 21:30
PROVIDERS: ADMIT Internal Medicine; ATTEND Internal Medicine

== ENCOUNTER 2017-10-05 18:43 | Observation (INO) ==
--- NOTE | 2017-10-05 18:53 | Emergency Department Note ---
Disposition Clinical Impression: TIA (transient ischemic attack) Hypertension Qualifiers: Hypertension type: unspecified Qualified Code(s): I10 - Essential (primary) hypertension Disposition: Admitted As Inpatient Condition: Good Referrals: Ronald Mi MD [Primary Care Provider] - Forms: ED Satisfaction Letter Time of Disposition: 21:12 General Adult HPI - General Chief complaint: ED Headache Stated complaint: Headache Time Seen by Provider: 10/05/17 18:48 Source: EMS Limitations: no limitations - History of Present Illness Pain Scale: 8 - Related Data Home Medications Medication Instructions Recorded Confirmed Cholecalciferol (D-3) [Vitamin D] 1,000 unit PO DAILY 01/23/16 10/05/17 Multivitamin [Multivitamins] 1 tab PO DAILY 01/23/16 10/05/17 Omeprazole [PriLOSEC] 20 mg PO DAILY 01/23/16 10/05/17 clonazePAM [Klonopin] 1 mg PO BID PRN 01/23/16 10/05/17 Aspirin Enteric Coated [Aspirin EC] 81 mg PO DAILY 11/21/16 10/05/17 Cyanocobalamin (Vitamin B-12) 100 mcg PO DAILY 04/22/17 10/05/17 [Vitamin B-12] Levothyroxine [Synthroid] 100 mcg PO 0630 04/22/17 10/05/17 Divalproex (24 HR) [Depakote ER 500 mg PO HS 10/05/17 10/05/17 (24 HR)] Glimepiride [Amaryl] 1 mg PO DAILY 10/05/17 10/05/17 Previous Rx's Medication Instructions Recorded Atorvastatin Calcium [Lipitor] 20 mg PO HS #30 tablet 04/25/17 Labetalol [Trandate] 100 mg PO BID #60 tablet 04/25/17 Butalbital/Aspirin/Caffeine 1 each PO DAILY PRN 7 Days #14 04/28/17 [Pipvbnjegk-PLU-Teshggze Cap] capsule Clopidogrel [Plavix] 75 mg PO DAILY #30 tablet 10/03/17 Allergies Allergy/AdvReac Type Severity Reaction Status Date / Time Iodinated Contrast- Oral and Allergy See Verified 10/03/17 12:16 IV Dye Comments ampicillin AdvReac Itching Verified 10/03/17 12:16 Cephalosporins AdvReac Rash Verified 10/03/17 12:16 metronidazole [From Flagyl] AdvReac Itching Verified 10/03/17 12:16 naproxen AdvReac Itching Verified 10/03/17 12:16 nitrofurantoin AdvReac "serum Verified 10/03/17 12:16 [From Macrodantin] sickness" penicillin V AdvReac Itching Verified 10/03/17 12:16 Past Medical History - Past Medical History Medical history: Reports: arthritis, CVA, diabetes, GERD, hypertension, migraine , thyroid disease Surgical history: Reports: hysterectomy, other Psychiatric history: Reports: no psych history 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 - Social History Smoking Status: Former smoker Smokeless Tobacco Status: No Alcohol use: Reports: none Drug use: Reports: none Physical Exam - General Limitations: no limitations General appearance: alert, in no apparent distress Course Vital Signs Temperature 0 F L 10/05/17 18:44 Pulse Rate 62 10/05/17 18:44 Respiratory Rate 18 10/05/17 18:44 Blood Pressure 0/0 10/05/17 18:44 O2 Sat by Pulse Oximetry 98 10/05/17 18:44 Temperature 0 F L 10/05/17 18:51 Pulse Rate 50 10/05/17 20:58 Respiratory Rate 16 10/05/17 20:58 Blood Pressure 202/89 10/05/17 20:58 O2 Sat by Pulse Oximetry 97 10/05/17 20:58 Oxygen Delivery Oxygen Delivery Room Air Medical Decision Making - Lab Data Result diagrams: 10/05/17 18:57 10/05/17 18:57 Lab Results 10/05/17 10/05/17 10/05/17 Range/Units 18:57 18:57 18:57 WBC 6.8 (4.3-11.1) K/mcL RBC 4.56 (3.82-4.97) M/mcL Hgb 12.8 (11.5-15.4) g/dL Hct 37.0 (35.3-44.9) % MCV 81.1 L (83.0-100.0) fL MCH 28.1 (28.0-33.3) pg MCHC 34.6 (31.6-35.5) g/dL RDW 12.9 (11.5-14.5) % Plt Count 202 (140-400) K/mcL MPV 10.1 (9.4-12.4) fL Immature Gran % 0.3 (0-4) % Seg Neutrophils % 48.6 % Lymphocytes % 31.5 % Monocytes % 13.9 % Eosinophils % 5.1 % Basophils % 0.6 % Neutrophils # 3.3 (1.6-8.9) K/mcL Lymphocytes # 2.2 (0.6-4.6) K/mcL Monocytes # 1.0 (0.0-1.3) K/mcL Eosinophils # 0.4 (0.0-0.6) K/mcL Basophils # 0.0 (0.0-0.2) K/mcL PT 11.2 (9.4-12.1) Seconds INR 1.0 Sodium 136 (136-145) mEq/L Potassium 3.8 (3.5-5.1) mEq/L Chloride 105 (98-107) mEq/L Carbon Dioxide 23 (23-29) mEq/L BUN 20 (8-23) mg/dL Creatinine 0.94 (0.60-1.20) mg/dL Est GFR ( Amer) > 60 (> 60) Est GFR (Non-Af Amer) 58 L (> 60) BUN/Creatinine Ratio 21 (6-26) Glucose 110 H (70-105) mg/dL Calculated Osmolality 285 (280-300) Calcium 9.1 (8.6-10.3) mg/dL Critical Care Time Critical Care Time: Yes Total Critical Care Time: 30 Attestation: Critical care performed: Time is exclusive of separately billable procedures. Time includes: direct patient care, patient reassessment, coordination of patient care, interpretation of data (laboratory data, radiology data, and respiratory data), review of patient's medical records, medical consultation and documentation of patient care. Procedures included in critical care time: Procedures excluded from critical care time: Attestation Statement - Attestation Attestation: I examined this patient and my medical decision-making was reviewed with the Resident Physician. I agree with the documented findings, disposition and treatment plan as described except to the extent set forth below. Patient presents to the ED with chief complaint of tingling around her mouth and her left hand and a headache. She also had some slurred speech. It happened about 1 hour prior to her arrival here. She called 911 during the symptoms are not resolved within a few minutes. Patient states she feels up with a normal now except for a headache. Patient is taking it appears that with no relief. Patient was also evaluated here 2 days ago for similar symptoms. She has an appointment with neurology tomorrow. On examination she is awake alert pleasant and conversant. Clear speech. NIH of 0. Plan. TIA workup and will discuss with neurology. Discussed with neurology. Requesting the patient be admitted. Patient admitted to medicine. Patient is not a TPA candidate secondary to complete resolution of her symptoms and an NIH scale of 0.
[2017-10-05] MEDS ORDERED: Metoclopramide 10 MG/2 ML VIAL IVP ONE (19:07)
--- NOTE | 2017-10-05 19:08 | Emergency Department Note ---
Disposition Clinical Impression: TIA (transient ischemic attack) Hypertension Qualifiers: Hypertension type: unspecified Qualified Code(s): I10 - Essential (primary) hypertension Disposition: Admitted As Inpatient Condition: Good Referrals: Ronald Mi MD [Primary Care Provider] - Forms: ED Satisfaction Letter Time of Disposition: 21:15 Headache HPI - General Chief Complaint: ED Headache Stated Complaint: Headache Time Seen by Provider: 10/05/17 18:48 Source: patient Mode of arrival: EMS Limitations: no limitations Nursing Notes Reviewed: Yes Vital Signs Reviewed: Yes - History of Present Illness HPI Narrative: 76-year-old female presents to the ER via EMS with a complaint of perioral paresthesias as well as left arm numbness. Patient states she was just here recently had imaging of her head and went home. States she was told if the symptoms return that she should come back. States from 5:30 this evening that she had 5 minutes of recurrence of episodes. States that she was having trouble walking and was slurring her words. She also had numbness to her left hand as well as around her mouth. Denies any head injury. She states she has had a headache which she has had a history of the past. She reports nausea without vomiting. No fevers. She was started on Plavix since she left. She is supposed to follow-up with neurology tomorrow. No other complaints. Pt Subjective Complaint: headache Onset (ago): hour(s) Time: 17:30 Onset description: sudden Pain Scale: 8 Improves with: other (Time) Worsens with: none Context: occurred at rest Associated symptoms: Denies: neck stiffness, photophobia, phonophobia Treatments prior to arrival: none - Related Data Home Medications Medication Instructions Recorded Confirmed Cholecalciferol (D-3) [Vitamin D] 1,000 unit PO DAILY 01/23/16 10/05/17 Multivitamin [Multivitamins] 1 tab PO DAILY 01/23/16 10/05/17 Omeprazole [PriLOSEC] 20 mg PO DAILY 01/23/16 10/05/17 clonazePAM [Klonopin] 1 mg PO BID PRN 01/23/16 10/05/17 Aspirin Enteric Coated [Aspirin EC] 81 mg PO DAILY 11/21/16 10/05/17 Cyanocobalamin (Vitamin B-12) 100 mcg PO DAILY 04/22/17 10/05/17 [Vitamin B-12] Levothyroxine [Synthroid] 100 mcg PO 0630 04/22/17 10/05/17 Divalproex (24 HR) [Depakote ER 500 mg PO HS 10/05/17 10/05/17 (24 HR)] Glimepiride [Amaryl] 1 mg PO DAILY 10/05/17 10/05/17 Previous Rx's Medication Instructions Recorded Atorvastatin Calcium [Lipitor] 20 mg PO HS #30 tablet 04/25/17 Labetalol [Trandate] 100 mg PO BID #60 tablet 04/25/17 Butalbital/Aspirin/Caffeine 1 each PO DAILY PRN 7 Days #14 04/28/17 [Ykqdtigyzp-DAQ-Xqzregil Cap] capsule Clopidogrel [Plavix] 75 mg PO DAILY #30 tablet 10/03/17 Allergies Allergy/AdvReac Type Severity Reaction Status Date / Time Iodinated Contrast- Oral and Allergy See Verified 10/03/17 12:16 IV Dye Comments ampicillin AdvReac Itching Verified 10/03/17 12:16 Cephalosporins AdvReac Rash Verified 10/03/17 12:16 metronidazole [From Flagyl] AdvReac Itching Verified 10/03/17 12:16 naproxen AdvReac Itching Verified 10/03/17 12:16 nitrofurantoin AdvReac "serum Verified 10/03/17 12:16 [From Macrodantin] sickness" penicillin V AdvReac Itching Verified 10/03/17 12:16 All systems ED: reviewed and negative except as stated. Constitutional: Denies: fever Cardiovascular: Denies: chest pain Respiratory: Denies: dyspnea Musculoskeletal: Denies: neck pain Neurological: Reports: headache, paresthesias. 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 history - Social History Smoking Status: Former smoker Alcohol use: Reports: none Drug use: Reports: none Physical Exam - General Limitations: no limitations General appearance: alert, in no apparent distress - Head Head exam: atraumatic, normocephalic, normal inspection - Eye Eye exam: Present: normal appearance, PERRL - ENT ENT exam: normal exam - Neck Neck exam: Present: normal inspection, full ROM - Chest Chest inspection: Present: normal inspection, symmetric chest wall rise - Respiratory Respiratory exam: Present: normal lung sounds bilaterally - Cardiovascular Cardiovascular exam: Present: regular rate, normal rhythm, normal heart sounds - Abdominal Exam Abdominal exam: Present: soft, Non-Tender. Absent: tenderness - Extremities Exam Extremities exam: Present: normal inspection, full ROM - Expanded Upper Extremity Exam Shoulder exam: Present: normal inspection, full ROM Arm exam: Present: normal inspection, full ROM Elbow exam: Present: normal inspection, full ROM Forearm/Wrist exam: Present: normal inspection, full ROM Hand exam: Present: normal inspection, full ROM Vascular exam: Normal: radial pulse - Expanded Lower Extremity Exam Hip/Pelvis exam: Present: normal inspection, full ROM Upper leg exam: Present: normal inspection, full ROM Knee exam: Present: normal inspection, full ROM Lower leg exam: Present: normal inspection, full ROM Ankle exam: Present: normal inspection, full ROM Foot/toe exam: Present: normal inspection, full ROM Neurovascular/Tendon exam: Absent: motor deficit, sensory deficit - Neurological Exam Neurological exam: Present: alert, oriented X3, CN II-XII intact - Expanded Neurological Exam Speech: Present: fluid speech Cranial nerves: EOM function (II, III, IV, ): Normal, facial sensation (V): Normal, spinal accessory function (XI): Normal, tongue deviation (XII): Normal Cerebellar function: finger to nose: Normal Motor strength - LUE: 5/5 Motor strength - RUE: 5/5 Motor strength - LLE: 5/5 Motor strength - RLE: 5/5 Sensory exam upper extremity: light touch: Normal Sensory exam lower extremity: light touch: Normal Coma Scale Eye Opening: Spontaneous Coma Scale Motor Response: Obeys Commands Coma Scale Verbal Response: Oriented Coma Scale Total: 15 - Skin Skin exam: Present: warm, dry Course Course Narrative: Patient seen and examined. Symptoms have resolved after 5 minutes. She has an NIH of 0. Plan to repeat CT imaging. She is noted to be hypertensive here isolated to her systolic pressure. Plan for treatment of her headache as well as imaging, labs, likely discussion with neurology with potential admission. - Reevaluation(s) Reevaluation #1: Discussed results of imaging labs with the patient. Agreeable with staying. - Consultations Consultation #1: I spoke with the on-call neurologist Dr. San. Discussed the patient's history exam as well as imaging. Agrees to see the patient in consultation. Vital Signs Temperature 0 F L 10/05/17 18:44 Pulse Rate 62 10/05/17 18:44 Respiratory Rate 18 10/05/17 18:44 Blood Pressure 0/0 10/05/17 18:44 O2 Sat by Pulse Oximetry 98 10/05/17 18:44 Temperature 0 F L 10/05/17 18:51 Pulse Rate 50 10/05/17 20:58 Respiratory Rate 16 10/05/17 20:58 Blood Pressure 202/89 10/05/17 20:58 O2 Sat by Pulse Oximetry 97 10/05/17 20:58 Oxygen Delivery Oxygen Delivery Room Air Headache - MDM Narrative Medical decision making narrative: 76-year-old female with TIA symptoms resolved prior to arrival. She was just seen here on the and was started on Plavix with similar symptoms. Imaging reviewed with no acute findings. NIH is 0 at time of presentation. Case discussed with neurology was consulted. Admitted to the hospitalist service. - Lab Data Lab results reviewed: Yes I reviewed the patient's lab results. Result diagrams: 10/05/17 18:57 10/05/17 18:57 Lab Results 10/05/17 10/05/17 10/05/17 Range/Units 18:57 18:57 18:57 WBC 6.8 (4.3-11.1) K/mcL RBC 4.56 (3.82-4.97) M/mcL Hgb 12.8 (11.5-15.4) g/dL Hct 37.0 (35.3-44.9) % MCV 81.1 L (83.0-100.0) fL MCH 28.1 (28.0-33.3) pg MCHC 34.6 (31.6-35.5) g/dL RDW 12.9 (11.5-14.5) % Plt Count 202 (140-400) K/mcL MPV 10.1 (9.4-12.4) fL Immature Gran % 0.3 (0-4) % Seg Neutrophils % 48.6 % Lymphocytes % 31.5 % Monocytes % 13.9 % Eosinophils % 5.1 % Basophils % 0.6 % Neutrophils # 3.3 (1.6-8.9) K/mcL Lymphocytes # 2.2 (0.6-4.6) K/mcL Monocytes # 1.0 (0.0-1.3) K/mcL Eosinophils # 0.4 (0.0-0.6) K/mcL Basophils # 0.0 (0.0-0.2) K/mcL PT 11.2 (9.4-12.1) Seconds INR 1.0 Sodium 136 (136-145) mEq/L Potassium 3.8 (3.5-5.1) mEq/L Chloride 105 (98-107) mEq/L Carbon Dioxide 23 (23-29) mEq/L BUN 20 (8-23) mg/dL Creatinine 0.94 (0.60-1.20) mg/dL Est GFR ( Amer) > 60 (> 60) Est GFR (Non-Af Amer) 58 L (> 60) BUN/Creatinine Ratio 21 (6-26) Glucose 110 H (70-105) mg/dL Calculated Osmolality 285 (280-300) Calcium 9.1 (8.6-10.3) mg/dL - Radiology Data Radiology results reviewed: Yes I reviewed the patient's radiology results. Head CT 10/05/17 18:54 IMPRESSION: 1. No acute intracranial abnormality. D/ / Tu Chiu MD / Tu Chiu MD Interpreting Provider: Tu Chiu MD - EKG Data EKG attestation: Yes I reviewed and interpreted this EKG. EKG results narrative: EKG demonstrates sinus bradycardia with a rate of 40 bpm. Normal axis. Normal intervals. Normal R-wave progression. No gross ST elevations or depressions. No acute ischemic findings. S.B.A.R. - S.B.A.R. Situation: Demographics, MOA Background: Presenting Complaint, Relevant PMH, Meds, & Allergies Assessment: Vital Signs, Course and respsone to treatment, Exam Concerns, Patient/Family Expectation, Pertinant Lab Results Recommendation: Barrier(s) to disposition, Recommendation based on pending studies, treatments, or consults S.B.A.R. Report Given to: Dr. Ramo Villa Repor Time: 20:51 NIH Stroke Scale - Level of Consciousness LOC: Alert - LOC Questions LOC Questions: Answers both correctly - LOC Commands LOC Commands: Performs both correctly - Best Gaze Best Gaze: Normal - Visual Visual: No visual loss - Facial Palsy Facial Palsy: Normal - Motor Arms Motor Arm-Left: No drift for 10 seconds Motor Arm-Right: No drift for 10 seconds - Motor Legs Motor Leg-Left: No drift for 5 seconds Motor Leg-Right: No drift for 5 seconds - Limb Ataxia Limb Ataxia: Normal, No Ataxia - Sensory Sensory: Normal - Best Language Best Language: No aphasia - Dysarthria Dysarthria: Normal - Extinction and Inattention Extinction and Inattention: Normal - NIHSS Total Score NIHSS Total Score: 0
[2017-10-05 19:12] LABS: Basophils % 0.6 %; Eosinophils # 0.4 K/mcL (0.0-0.6); Eosinophils % 5.1 %; Hemoglobin 12.8 g/dL (11.5-15.4); Immature Granulocytes % 0.3 % (0-4); Lymphocytes # 2.2 K/mcL (0.6-4.6); Lymphocytes % 31.5 %; Mean Corpuscular HGB Conc 34.6 g/dL (31.6-35.5); Mean Corpuscular Hemoglobin 28.1 pg (28.0-33.3); Mean Corpuscular Volume 81.1 fL (83.0-100.0); Mean Platelet Volume 10.1 fL (9.4-12.4); Monocytes % 13.9 %; Neutrophils # 3.3 K/mcL (1.6-8.9); Platelet Count 202 K/mcL (140-400); Red Blood Count 4.56 M/mcL (3.82-4.97); Red Cell Distribution Width 12.9 % (11.5-14.5); Segmented Neutrophils % 48.6 %
[2017-10-05 19:17] LABS: Prothrombin Time 11.2 Seconds (9.4-12.1)
[2017-10-05 19:26] LABS: BUN/Creatinine Ratio 21 (6-26); Blood Urea Nitrogen 20 mg/dL (8-23); Calcium 9.1 mg/dL (8.6-10.3); Carbon Dioxide 23 mEq/L (23-29); Chloride 105 mEq/L (98-107); Glucose 110 mg/dL (70-105); Osmolality,Calculated 285 (280-300); Potassium 3.8 mEq/L (3.5-5.1); Sodium 136 mEq/L (136-145); eGFR For Non-African Americans 58 (> 60)
[2017-10-05] MEDS ORDERED: clonazePAM 1 MG TABLET PO PRN (21:22)
[2017-10-05] MEDS ORDERED: Dextrose Gel 15 GM/37.5 ML TUBE PO PRN ×2 (21:25)
[2017-10-05] MEDS ORDERED: amLODIPine 5 MG TABLET PO ONE (22:33)
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
[2017-10-05] MEDS ORDERED: Ketorolac 15 MG/ML VIAL IVP ONE (23:03)
[2017-10-06] MEDS: Insulin LISPRO 300 UNITS/3 ML VIAL SQ SCH ×3 (00:01→13:17)
[2017-10-06] MEDS: *HR* Heparin 5,000 UNIT/ML VIAL SQ SCH ×2 (05:51→13:23)
[2017-10-06 06:54] LABS: Chol/HDL Ratio 3.1 (0-4.9)
[2017-10-06 07:05] LABS: Thyroid Stimulating Hormone 0.87 mcIU/mL (0.340-5.600)
[2017-10-06] MEDS ORDERED: Acetaminophen 325 MG TABLET PO PRN (08:50)
[2017-10-06] MEDS ORDERED: Cholecalciferol (D-3) 1,000 UNIT TABLET PO SCH (09:00)
[2017-10-06] MEDS ORDERED: Multivit/Ca/Min/Fe/FA 1 TAB TABLET PO SCH (09:00)
[2017-10-06] MEDS ORDERED: Cyanocobalamin (B-12) 1,000 MCG TABLET PO SCH (09:00)
[2017-10-06] MEDS ORDERED: Aspirin Enteric Coated 81 MG Tablet PO SCH (09:00)
[2017-10-06] MEDS ORDERED: hydroCHLOROthiazide 25 MG TABLET PO SCH (12:00)
--- NOTE | 2017-10-06 13:45 | Neurology - Consult Note ---
<Keron Mcbride - Last Filed: 10/06/17 14:14> Date of Encounter: 10/06/17 Time of Encounter: 12:00 Assessment and Plan (1) Migraine Status: Chronic Her constellation of symptoms most likely due to a migrainous phenomena and not a TIA. Decrease her migraine preventative depakote from 500mg to 250mg HS with plan to stop depakote at office fu visit Add 25mg amitriptyline HS for migraine preventative Follow up in office in [address] Miller Qualifiers: Migraine type: without aura Status migrainosus presence: without status migrainosus Intractability: not intractable Qualified Code(s): G43.009 - Migraine without aura, not intractable, without status migrainosus (2) TIA (transient ischemic attack) Status: Acute Her symptoms are likely due to migrainous phenomena rather than TIA. CT head does not show any evidence of an acute stroke but does show a prior infarct. ECG and ECHO this visit did not show any evidence of Afib or emboli. Will stop plavix as there is no evidence of an acute stroke or TIA. Given her PMH we did discuss stroke risk factor modifications she can continue with at dc OK to dc and follow up in the office in [address] Miller Qualifiers: Transient cerebral ischemia type: unspecified Qualified Code(s): G45.9 - Transient cerebral ischemic attack, unspecified History of Present Illness Chief complaint: Headache and L arm numbness HPI: Ms. Sanchez is a 76 year old female with a PMH significant for HTN, DM, hx migraines, and prior CVA who neurology has been consulted for headache and L arm /hand numbness. 4 days ago she had a LORA, L forearm/hand numbness, and slurred speech which she went to the ED and was evaluated and sent home after a couple hours due to symptom resolution and normal CT head. Last night she experienced similar symptoms of L forearm/hand numbness/parasthesia's, perioral numbness/ parasthesia's and a severe LORA she describes as throbbing, constant pain in R frontal and R parietal region with suborbital pressure and photophobia. She was treated for hypertensive emergency in the ED and indicated when she gets migraines her BP goes way up. She denies any dizziness, diplopia, blurry vision , loss of peripheral vision, redness or tearing, chest pain, SOB, palpitations, feelings of impending syncope, N/V, or muscle weakness/soreness with her presenting symptoms. Today, her symptoms had mostly resolved only complaining of a very minor LORA and no further L forearm/hand numbness or periorbital numbness. Past Med Surg Social Fam HX - Past Medical History Medical history: arthritis, CVA, diabetes, GERD, hypertension, migraine, thyroid disease Psychiatric history: no psych history - Past Surgical History Surgical History: hysterectomy, other Additional surgical history: breast augmentation, T&A, bladder susp. 01/30/16 LLE PHLEBECTOMY @[facility] W/DR BLAND,. fixo - Social History Smoking Status: Former smoker Smokeless Tobacco Status: No Alcohol use: none Drug use: none - Family History Mother Hx Family Cardiac Disorders: Yes Father Hx Family Cardiac Disorders: Yes Brother Hx Family Cardiac Disorders: Yes Hx Family GI Disorders: Yes (chrons) Medications and Allergies Cholecalciferol (D-3) [Vitamin D] 1,000 unit PO DAILY 01/23/16 [History] Multivitamin [Multivitamins] 1 tab PO DAILY 01/23/16 [History] Omeprazole [PriLOSEC] 20 mg PO DAILY 01/23/16 [History] clonazePAM [Klonopin] 1 mg PO BID PRN 01/23/16 [History] Aspirin Enteric Coated [Aspirin EC] 81 mg PO DAILY 11/21/16 [History] Cyanocobalamin (Vitamin B-12) [Vitamin B-12] 100 mcg PO DAILY 04/22/17 [History] Levothyroxine [Synthroid] 100 mcg PO 0630 04/22/17 [History] Atorvastatin Calcium [Lipitor] 20 mg PO HS #30 tablet 04/25/17 [Rx] Butalbital/Aspirin/Caffeine [Ggnwzuozkz-XIK-Hohaijnu Cap] 1 each PO DAILY PRN 7 Days #14 capsule 04/28/17 [Rx] Clopidogrel [Plavix] 75 mg PO DAILY #30 tablet 10/03/17 [Rx] Glimepiride [Amaryl] 1 mg PO DAILY 10/05/17 [History] Amitriptyline [Elavil] 25 mg PO HS #30 tablet 10/06/17 [Rx] Divalproex (24 HR) [Depakote ER (24 HR)] 250 mg PO HS #14 tab.er.24h 10/06/17 [ Rx] Losartan [Cozaar] 50 mg PO DAILY tablet 10/06/17 [Rx] 3 Allergy/AdvReac Type Severity Reaction Status Date / Time Iodinated Contrast- Oral and Allergy See Verified 10/03/17 12:16 IV Dye Comments ampicillin AdvReac Itching Verified 10/03/17 12:16 Cephalosporins AdvReac Rash Verified 10/03/17 12:16 metronidazole [From Flagyl] AdvReac Itching Verified 10/03/17 12:16 naproxen AdvReac Itching Verified 10/03/17 12:16 nitrofurantoin AdvReac "serum Verified 10/03/17 12:16 [From Macrodantin] sickness" penicillin V AdvReac Itching Verified 10/03/17 12:16 All Systems: The remainder of the systems were reviewed and are negative Physical Examination - Vital Signs Vital Signs: Initial Vital Signs Temp Pulse Resp BP Pulse Ox 0 F L 62 18 0/0 98 10/05/17 18:44 10/05/17 18:44 10/05/17 18:44 10/05/17 18:44 10/05/17 18:44 - Constitutional General appearance: comfortable - Neurologic Sensorimotor examination: intact Detailed motor examination: full strength in all major muscle groups Detailed sensory examination: intact Reflexes: Biceps: 2+, Triceps: 2+, Brachioradialis: 2+, Patella: 2+, Achilles: 2 + Mental Status Examination: awake, alert, oriented to person, oriented to place, oriented to time, follows commands appropriately, answers questions appropriately, no aphasia Cranial nerve examination: PERRL, EOMI, visual capellan intact, corneal reflexes brisk symmetrically, sensory to face intact, no facial asymmetry is present, no dysarthria, hearing is intact symmetrically, soft palate elevates bilaterally upon phonation, flexes SCM and trapezius muscles symmetrically with full power, tongue protrudes midline, no atrophy or facial fasiculations present Cerebellar examination: no dysmetria, performs finger to nose and heel to garcia symmetrically without ataxia, no difficulty with rapid alternating movements Results - Laboratory Findings CBC and BMP: 10/05/17 18:57 10/05/17 18:57 Abnormal lab findings: Abnormal lab results MCV 81.1 fL (83.0-100.0) L 10/05/17 18:57 Est GFR (Non-Af Amer) 58 (> 60) L 10/05/17 18:57 Glucose 110 mg/dL (70-105) H 10/05/17 18:57 POC Glucose 156 mg/dL (70-99) H 10/05/17 23:55 Consult Discharge Plan - Plan Instructions: Amitriptyline (By mouth), Divalproex (By mouth), Hypertensive Crisis (DC) Additional Instructions: Follow up with your PCP in the next 3-5 days for a recheck. Follow with Dr. Miller in the neurology office in 2 weeks. Take your medications as directed. Your new prescriptions have been sent to your pharmacy. Stop taking your Metoprolol since your pulse is so low. Stop taking 500mg of Depakote and start taking 250mg, the plan is to stop the medication at the next neurology visit. Take your blood pressure daily, record, and take readings to your PCP. Return to the ER as needed for any other problems or concerns, or if your symptoms return or worsen. Resume your normal medications and return to your normal diet and activties as tolerated. Referrals: Jovany Miller DO [Partnered Physician] - (Please call to schedule follow up appointment in 2 weeks) Ronald Mi MD [Primary Care Provider] - (Please call to schedule follow up appointment in 3-5 days) Prescriptions: Amitriptyline [Elavil] 25 mg PO HS #30 tablet Divalproex (24 HR) [Depakote ER (24 HR)] 250 mg PO HS #14 tab.er.24h <Tania San I - Last Filed: 10/12/17 11:45> Date of Encounter: 10/05/17 Assessment and Plan (1) Migraine Status: Chronic Pt was seen and examined, my medical decision was reviewed with the Resident Physician, I agree with the documented findings, disposition and treatment plas as described except to the extent set forth below Tania San MD Qualifiers: Migraine type: without aura Status migrainosus presence: without status migrainosus Intractability: not intractable Qualified Code(s): G43.009 - Migraine without aura, not intractable, without status migrainosus History of Present Illness HPI: Ms. Sanchez is a 76 year old female All Systems: The remainder of the systems were reviewed and are negative Physical Examination - Vital Signs Vital Signs: Initial Vital Signs Temp Pulse Resp BP Pulse Ox 0 F L 62 18 0/0 98 10/05/17 18:44 10/05/17 18:44 08 18:44 10/05/17 18:44 10/05/17 18:44 Results - Laboratory Findings CBC and BMP: 10/05/17 18:57 10/05/17 18:57 Abnormal lab findings: Abnormal lab results MCV 81.1 fL (83.0-100.0) L 10/05/17 18:57 Est GFR (Non-Af Amer) 58 (> 60) L 10/05/17 18:57 Glucose 110 mg/dL (70-105) H 10/05/17 18:57 POC Glucose 102 mg/dL (70-99) H 10/06/17 12:17 Homocysteine 15 umol/L (<=10) H 10/06/17 05:35
--- NOTE | 2017-10-06 15:32 | Discharge Summary ---
- NOTES TO OUTPATIENT PROVIDER Notes to Outpatient Provider: Pt admitted with hypertensive emergency. I have added HCTZ 25mg po daily with good results. Pt also has been bradycardic, could follow with cardiology if persistent. While here, avg rate for 24 hours was 60, she appears to be asymptomatic. Orders not resulted at time of discharge: Pending orders 10/06/17 05:35 Homocysteine AM 0400 MMA (VIT B12 STATUS) AM 0400 Date of Encounter: 10/06/17 Time of Encounter: 10:40 - Discharge Diagnosis (1) Bradycardia Priority: Secondary Status: Acute Assessment and Plan: Avg rate for 24 hours is 60bpm. Pt denies chest pain, BP is controlled. Pt is asymptomatic. Recommend follow up with PCP for possible referral to cardiology if needed. (2) TIA (transient ischemic attack) Priority: Secondary Status: Ruled-out Assessment and Plan: Symptoms have resolved. Symptoms were associated with hypertensive emergency and migraine. CT was negative, echo showed LVEF is 60% with mild LV DD, mild MR, mild to moderate calcified aortic leaflets, no evidence of PFO. Patient will follow with neurology, will be started on amitriptyline at bedtime for migraine symptom control. (3) Hypertension Priority: Secondary Status: Chronic Assessment and Plan: Chronic. Patient will go home with hydrochlorothiazide 25 mg by mouth daily in addition to her other home antihypertensives. Pressure is well controlled at discharge. Qualifiers: Hypertension type: unspecified Qualified Code(s): I10 - Essential (primary ) hypertension (4) Hypothyroidism Priority: Secondary Status: Chronic Assessment and Plan: TSH within normal limits. Continue home medications. Qualifiers: Hypothyroidism type: acquired Qualified Code(s): E03.9 - Hypothyroidism, unspecified (5) Migraine Priority: Secondary Status: Chronic Assessment and Plan: Patient has been evaluated by neurology, they feel that she did not have a TIA, and observe most likely secondary to migraine. Depakote has been decreased from 500 mg to 200 mg at bedtime and they will plan to stop the medication at the office follow-up. Patient be started on amitriptyline 25 mg at bedtime. Follow-up with Dr. Miller in the office in 2 weeks. Patient has better control of blood pressure with addition of HCTZ 25 mg daily. , could assist in preventing or lessening migraines. Patient denies headache at this time, states that she feels better, is ready for discharge. Qualifiers: Migraine type: without aura Status migrainosus presence: without status migrainosus Intractability: not intractable Qualified Code(s): G43.009 - Migraine without aura, not intractable, without status migrainosus (6) DVT prophylaxis Priority: Secondary Status: Acute Assessment and Plan: Heparin subcutaneous 3 times daily. (7) Hypertensive emergency Priority: Secondary Status: Acute Assessment and Plan: Patient arrived with systolic blood pressure greater than 200. She reports chronic hypertension. Patient was admitted with numbness and tingling in extremities and headache, could be secondary to uncontrolled hypertension. She will continue her normal home medications, hydrochlorothiazide 25 mg by mouth daily has been added to regimen. Patient will need close follow-up with primary care for medication adjustments or changes as needed. (8) Diabetes mellitus Priority: Secondary Status: Chronic Assessment and Plan: Well-controlled. A1c 6.5% in Jul, 2017. Continue home medications, Accu-Chek regimen, diabetic diet. Qualifiers: Diabetes mellitus type: type 2 Diabetes mellitus rn progressive care insulin use: without retirement use Diabetes mellitus complication status: without complication Qualified Code(s): E11.9 - Type 2 diabetes mellitus without complications Hospital course: Ms. Sanchez is a 76 year old female with past medical history of migraines, diabetes, hypothyroidism, hypertension. Patient presented to the emergency department with numbness and tingling in extremities, slurred speech. Symptoms revolved spontaneously, initial workup was for TIA, however after review of neurology, they feel that symptoms are more related to migraine and TIA. Head CT was negative. Patient was also admitted for hypertensive emergency with systolic blood pressure greater than 200. Patient did receive treatment IV hydralazine as well as Norvasc, blood pressure remained uncontrolled today. Hydralazine 25 mg by mouth daily was added and blood pressure was at goal after administration. As for migraine control, she will decrease her Depakote from 500 mg daily to 250 mg daily with the intent to completely discontinue the medication for the next office visit with neurology in 2 weeks. Amitriptyline 25 mg qhs has been added in its place. Labs and vital signs are stable and within normal limits. Patient has returned to baseline and has an unremarkable. Both physical exam with no focal neurological deficits. She is stable and appropriate for discharge home. Discharge discussed with: patient - Time Spent with Patient Total time spent providing and/or coordinating discharge services: Less than 30 minutes - Discharge Medications Prescriptions: Amitriptyline [Elavil] 25 mg PO HS #30 tablet Divalproex (24 HR) [Depakote ER (24 HR)] 250 mg PO HS #14 tab.er.24h Home Medications: Cholecalciferol (D-3) [Vitamin D] 1,000 unit PO DAILY 01/23/16 [History] Multivitamin [Multivitamins] 1 tab PO DAILY 01/23/16 [History] Omeprazole [PriLOSEC] 20 mg PO DAILY 01/23/16 [History] clonazePAM [Klonopin] 1 mg PO BID PRN 01/23/16 [History] Aspirin Enteric Coated [Aspirin EC] 81 mg PO DAILY 11/21/16 [History] Cyanocobalamin (Vitamin B-12) [Vitamin B-12] 100 mcg PO DAILY 04/22/17 [History] Levothyroxine [Synthroid] 100 mcg PO 0630 04/22/17 [History] Atorvastatin Calcium [Lipitor] 20 mg PO HS #30 tablet 04/25/17 [Rx] Butalbital/Aspirin/Caffeine [Yyfyecxcbw-OMK-Xqbgmidu Cap] 1 each PO DAILY PRN 7 Days #14 capsule 04/28/17 [Rx] Clopidogrel [Plavix] 75 mg PO DAILY #30 tablet 10/03/17 [Rx] Glimepiride [Amaryl] 1 mg PO DAILY 10/05/17 [History] Amitriptyline [Elavil] 25 mg PO HS #30 tablet 10/06/17 [Rx] Divalproex (24 HR) [Depakote ER (24 HR)] 250 mg PO HS #14 tab.er.24h 10/06/17 [ Rx] Losartan [Cozaar] 50 mg PO DAILY tablet 10/06/17 [Rx] Allergies/Adverse Reactions: 3 Allergy/AdvReac Type Severity Reaction Status Date / Time Iodinated Contrast- Oral and Allergy See Verified 10/03/17 12:16 IV Dye Comments ampicillin AdvReac Itching Verified 10/03/17 12:16 Cephalosporins AdvReac Rash Verified 10/03/17 12:16 metronidazole [From Flagyl] AdvReac Itching Verified 10/03/17 12:16 naproxen AdvReac Itching Verified 10/03/17 12:16 nitrofurantoin AdvReac "serum Verified 10/03/17 12:16 [From Macrodantin] sickness" penicillin V AdvReac Itching Verified 10/03/17 12:16 Date of admission: 10/05/17 21:59 Primary care physician: Ronald Mi MD Discharging clinician: Kathy Hopkins Anticipated date of discharge: 10/06/17 - Constitutional Vitals: Temp Pulse Resp BP Pulse Ox 97.7 F 54 17 173/69 96 10/06/17 12:26 10/06/17 12:26 10/06/17 12:26 10/06/17 12:26 10/06/17 12:26 General appearance: Present: cooperative, A&O X 3, pleasant, no acute distress, answers questions appropriately - Head Head exam: Present: atraumatic, normal inspection, normocephalic - Eye Eye exam: Present: normal appearance, conjuntiva pink, sclera anicteric - Neck Neck exam general surgery: Present: supple, trachea midline. Absent: lymphadenopathy, tenderness - Respiratory Respiratory exam: Present: CTAB. Absent: accessory muscle use, chest wall tenderness, rales, respiratory distress, rhonchi, wheezes - Cardiovascular Cardiovascular exam: Present: RRR, +S1, +S2. Absent: diastolic murmur, gallop, rubs, systolic murmur - GI/Abdominal GI/Abdominal exam: Present: normal bowel sounds, soft. Absent: distended, hepatomegaly, tenderness - Extremities Exam Extremities exam: Present: normal capillary refill, normal inspection, warm, radial pulses palpable and symmetrical. Absent: calf tenderness, cyanotic, pedal edema, tenderness - Neurological Exam Neurological exam: Present: alert, oriented X3, no focal deficits. Absent: facial droop, speech deficit - Skin Skin exam: Present: dry, intact, normal color, warm. Absent: rash - Patient Status Disposition: Home, Self-Care Condition: Good Functional capacity at discharge: independent ambulation Overall status at discharge: patient is back to baseline - Discharge Instructions Follow Up With: Ronald Mi MD [Primary Care Provider] - Additional Instructions: Follow up with your PCP in the next 3-5 days for a recheck. Follow with Dr. Miller in the neurology office in 2 weeks. Take your medications as directed. Your new prescriptions have been sent to your pharmacy. Stop taking your Metoprolol since your pulse is so low. Stop taking 500mg of Depakote and start taking 250mg, the plan is to stop the medication at the next neurology visit. Take your blood pressure daily, record, and take readings to your PCP. Return to the ER as needed for any other problems or concerns, or if your symptoms return or worsen. Resume your normal medications and return to your normal diet and activties as tolerated. - Diet and Activity Activity: increase activity as tolerated Diet: diabetic diet
[2017-10-06 15:42] VITALS: BP 142/90
[2017-10-06] MEDS ORDERED: amLODIPine 5 MG TABLET PO ONE (15:43)
[2017-10-06] MEDS ORDERED: Divalproex (24 HR) 250 MG TABLET PO SCH ×2 (21:00)
--- NOTE | 2017-10-07 02:17 | Electrocardiograph Report ---
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
== END 2017-10-06 17:36 | disposition home or self-care (01) ==
LOC: EMEROO 18:43 → 3BNU 18:43
PROVIDERS: ADMIT Student in an Organized Health Care Education/Training Program; ATTEND Student in an Organized Health Care Education/Training Program